=== PATIENT | female | born 1965 | race Hispanic/Latino ===

== ENCOUNTER → 2018-07-18 | Emergency (ER) | payer OTHER ==
[~2018-07-18] VITALS: Ht 157.5 cm; Wt 85.7 kg
[~2018-07-18] MED LIST: HYDROCODONE/APAP 5MG-325MG TAB PO ONE; TYLENOL WITH C1 EACH PO; Z.0.DILANTIN100 MG; Z.0.DIOVAN160 MG
--- NOTE | 2018-07-18 13:31 | Diagnostic Imaging Report ---
EXAMINATION: PA and lateral views of the chest. Rib series COMPARISON: None CLINICAL HISTORY: Pain DISCUSSION: Lines/tubes: None. Lungs: The lungs are well inflated and clear. No pneumonia or pulmonary edema. Pleura: No pleural effusion or pneumothorax. Heart and mediastinum: The cardiomediastinal silhouette is normal. Bones and soft tissues: No acute bony abnormalities. IMPRESSION: No acute cardiopulmonary abnormalities. No displaced rib fracture Signed by: Dr. Jose D Bowens M.D. on 07/18/2018 1:29 PM
--- NOTE | 2018-07-18 13:32 | Diagnostic Imaging Report ---
Exam: Left wrist 3 views an elbow 3 views History: Pain Comparison: None. Findings: No fracture or malalignment. Joint spaces preserved. No abnormal soft tissue calcification or soft tissue defect. Impression: No acute osseous abnormality Signed by: Dr. Jose D Bowens M.D. on 07/18/2018 1:30 PM
== END | disposition home or self-care (01) ==
LOC: ER 12:14
DX: S52.325A Nondisplaced transverse fracture of shaft of left radius, initial encounter for closed fracture (principal); R07.89 Other chest pain; M25.522 Pain in left elbow; W01.0XXA Fall on same level from slipping, tripping and stumbling without subsequent striking against object, initial encounter; Y92.512 Supermarket, store or market as the place of occurrence of the external cause
CPT/HCPCS: 71046; 71101

== ENCOUNTER → 2018-11-12 | Outpatient (CLI) | payer OTHER ==
[~2018-11-12] MED LIST changes: -HYDROCODONE/APAP 5MG-325MG TAB PO ONE
--- NOTE | 2018-11-12 09:40 | Diagnostic Imaging Report ---
ADDENDUM #1 ADDENDUM: Dose modulation, iterative reconstruction, and/or weight based adjustment of the mA/kV was utilized to reduce the radiation dose to as low as reasonably achievable. Signed by: Dr. Brooke Kwong MD on 11/12/2018 12:44 PM ORIGINAL REPORT EXAM: CT Abdomen and Pelvis WITHOUT contrast INDICATION: Diarrhea, left lower quadrant pain, Helicobacter pylori. COMPARISON: None. TECHNIQUE: Abdomen and pelvis were scanned utilizing a multidetector helical scanner from the lung base to the pubic symphysis without administration of IV contrast. Absence of intravenous contrast decreases sensitivity for detection of focal lesions and vascular pathology. Coronal and sagittal reformations were obtained. Routine protocol was performed. IV CONTRAST: None. ORAL CONTRAST: Gastrografin RADIATION DOSE: Total DLP: 621.2 mGy*cm COMPLICATIONS: None FINDINGS: LINES and TUBES: None. LOWER THORAX: Unremarkable HEPATOBILIARY: No focal hepatic lesions. No biliary ductal dilation. GALLBLADDER: No radio-opaque stones or sludge. No wall thickening. SPLEEN: No splenomegaly. PANCREAS: No focal masses or ductal dilatation. ADRENALS: No adrenal nodules KIDNEYS/URETERS: No hydronephrosis. No cystic or solid mass lesions. No stones. GI TRACT: No evidence of bowel obstruction. Appendix is normal. Mild gastric wall thickening. PELVIC ORGANS/BLADDER: Status post hysterectomy. LYMPH NODES: No lymphadenopathy. VESSELS: Unremarkable. PERITONEUM / RETROPERITONEUM: No free air or fluid. BONES: No acute bony abnormality. SOFT TISSUES: Bilateral breast implants. IMPRESSION: No evidence of acute CT abdomen in the abdomen or pelvis. Mild gastric wall thickening, which may reflect underdistention or gastritis in this patient with history of Helicobacter pylori. Correlation with findings from reported EGD performed at outside hospital is suggested. Signed by: Dr. Brooke Kwong MD on 11/12/2018 9:36 AM
== END ==
LOC: CT 08:02
PROVIDERS: ATTEND Internal Medicine Gastroenterology
DX: R19.7 Diarrhea, unspecified (principal); R10.32 Left lower quadrant pain; A04.8 Other specified bacterial intestinal infections; Z71.3 Dietary counseling and surveillance
CPT/HCPCS: 74176

== ENCOUNTER 2019-02-10 21:17 | Emergency (ER) | payer OTHER ==
--- OUTSIDE RECORDS SUMMARY | 2019-02-10 21:20 | XMS REPORT ---
Author [facility] Address Unknown Phone Unavailable Care Team Providers Care Poleyard Supervisor Name Role Phone Jes ALEXIS Unavailable Unavailable Marlee GOODMAN Unavailable Unavailable Payers Payer Name Policy Type Policy Number Effective Date Expiration Date Problems This patient has no known problems. Allergies, Adverse Reactions, Alerts Allergy Name Allergy Type Status Severity Reaction(s) Onset Date Inactive Date Treating Clinician Comments Penicillins DA Active U 2018-09-23 00:00:00 tramadol DA Active SV 2018-09-23 00:00:00 methocarbamol DA Active U 2018-05-08 00:00:00 pineapple DA Active U 2018-05-08 00:00:00 kiwi DA Active U 2018-05-08 00:00:00 carbamazepine DA Active U 2018-03-06 00:00:00 Medications This patient has no known medications. Results Test Description Test Time Test Comments Text Results Atomic Results Result Comments CT ABDOMEN/PELVIS WO 2018-11-12 09:28:[address] [address] Patient Name: TONI NORWOOD MR #: [id number] : 1965 Age/Sex: 53/F Req #: [id number] Adm Physician: Ordered by: ARIANNA ALEXIS MD Report #: [id number] Location: CT Room/Bed: Procedure: [id number] CT/CT ABDOMEN/PELVIS WO Exam Date: 11/12/18 Exam Time: 0900 REPORT STATUS: Signed ADDENDUM #1 ADDENDUM: Dose modulation, iterative reconstruction, and/or weight based adjustment of the mA/kV was utilized to reduce the radiation dose to as low as reasonably achievable. Signed by: Dr. Kaitlin Hamm MD on 11/12/2018 12:44 PM ORIGINAL REPORT EXAM: CT Abdomen and Pelvis WITHOUT contrast INDICATION: Diarrhea, left lower quadrant pain, Helicobacter pylori. COMPARISON: None. TECHNIQUE: Abdomen and pelvis were scanned utilizing a multidetector helical scanner from the lung base to the pubic symphysis without administration of IV contrast. Absence of intravenous contrast decreases sensitivity for detection of focal lesions and vascular pathology. Coronal and sagittal reformations were obtained. Routine protocol was performed. IV CONTRAST: None. ORAL CONTRAST: Gastrografin RADIATION DOSE: Total DLP: 621.2 mGy*cm COMPLICATIONS: None FINDINGS: LINES and TUBES: None. LOWER THORAX: Unremarkable HEPATOBILIARY: No focal hepatic lesions. No biliary ductal dilation. GALLBLADDER: No radio-opaque stones or sludge. No wall thickening. SPLEEN: No splenomegaly. PANCREAS: No focal masses or ductal dilatation. ADRENALS: No adrenal nodules KIDNEYS/URETERS: No hydronephrosis. No cystic or solid mass lesions. No stones. GI TRACT: No evidence of bowel obstruction. Appendix is normal. Mild gastric wall thickening. PELVIC ORGANS/BLADDER: Status post hysterectomy. LYMPH NODES: No lymphadenopathy. VESSELS: Unremarkable. PERITONEUM / RETROPERITONEUM: No free air or fluid. BONES: No acute bony abnormality. SOFT TISSUES: Bilateral breast implants. IMPRESSION: No evidence of acute CT abdomen in the abdomen or pelvis. Mild gastric wall thickening, which may reflect underdistention or gastritis in this patient with history of Helicobacter pylori. Correlation with findings from reported EGD performed at outside hospital is suggested. Signed by: Dr. Kaitlin Hamm MD on 11/12/2018 9:36 AM Dictated By: KAITLIN HAMM MD [id number] Transcribed By: BURT MICHAUD on 11/12/18 0936 COPY TO: ARIANNA ALEXIS MD WRIST COMPLETE LEFT 2018-07-18 13:29:00 [place] [address] Patient Name: TONI NORWOOD MR #: [id number] : 1965 Age/Sex: 52/F Req #: [id number] Adm Physician: Ordered by: SAMRA REYES NP Report #: [id number] Location: ER Room/Bed: Procedure: [id number] DX/WRIST COMPLETE LEFT Exam Date: Exam Time: REPORT STATUS: Signed Exam: Left wrist 3 views an elbow 3 views History: Pain Comparison: None. Findings: No fracture or malalignment. Joint spaces preserved. No abnormal soft tissue calcification or soft tissue defect. Impression: No acute osseous abnormality Signed by: Dr. Saba Medina M.D. on 07/18/2018 1:30 PM Dictated By: SABA MEDINA MD [id number] Transcribed By: RILEY on 07/18/18 1330 COPY TO: SAMRA REYES NP ELBOW LEFT COMPLETE 2018-07-18 13:29:[address], [place], [place] [address] Patient Name: TONI NORWOOD MR #: [id number] : 1965 Age/Sex: 52/F Req #: [id number] Adm Physician: Ordered by: SAMRA REYES [employer]CRA[employer] MAINTENAN[employer] INSTRUCTOR Report #: [id number] Location: ER Room/Bed: Procedure: [id number] DX/ELBOW LEFT COMPLETE Exam Date: Exam Time: REPORT STATUS: Signed Exam: Left wrist 3 views an elbow 3 views History: Pain Comparison: None. Findings: No fracture or malalignment. Joint spaces preserved. No abnormal soft tissue calcification or soft tissue defect. Impression: No acute osseous abnormality Signed by: Dr. Saba Medina M.D. on 07/18/2018 1:30 PM Dictated By: SABA MEDINA MD 29 Transcribed By: RILEY on 07/18/18 1330 COPY TO: SAMRA REYES NP/CXDarian 2018-07-18 13:26:00 [place] [address] Patient Name: TONI NORWOOD MR #: [id number] : 1965 Age/Sex: 52/F Req #: [id number] Adm Physician: Ordered by: SAMRA REYES [employer]CRA[employer] MAINTENANCE INSTRUCTOR Report #: [id number] Location: ER Room/Bed: Procedure: DX/RIBS UNILAT W/CXR Exam Date: Exam Time: REPORT STATUS: Signed EXAMINATION: PA and lateral views of the chest. Rib series COMPARISON: None CLINICAL HISTORY: Pain DISCUSSION: Lines/tubes: None. Lungs: The lungs are well inflated and clear. No pneumonia or pulmonary edema. Pleura: No pleural effusion or pneumothorax. Heart and mediastinum: The cardiomediastinal silhouette is normal. Bones and soft tissues: No acute bony abnormalities. IMPRESSION: No acute cardiopulmonary abnormalities. No displaced rib fracture Signed by: Dr. Saba Medina M.D. on 07/18/2018 1:29 PM Dictated By: SABA MEDINA MD 28 Transcribed By: RILEY on 07/18/181328 COPY TO: SAMRA REYES [employer] MAINTENANCE INSTRUCTOR CHEST 2 VIEWS 2018-07-18 13:26:00 [place] [address] Patient Name: TONI NORWOOD MR #: [id number] : 1965 Age/Sex: 52/F Req #: [id number] Adm Physician: Ordered by: SAMRA REYES [employer] MAINTENAN[employer] INSTRUCTOR Report #: [id number] Location: ER Room/Bed: Procedure: DX/CHEST 2 VIEWS Exam Date: Exam Time: REPORT STATUS: Signed EXAMINATION: PA and lateral views of the chest. Rib series COMPARISON: None CLINICAL HISTORY: Pain DISCUSSION: Lines/tubes: None. Lungs: The lungs are well inflated and clear. No pneumonia or pulmonary edema. Pleura: No pleural effusion or pneumothorax. Heart and mediastinum: The cardiomediastinal silhouette is normal. Bones and soft tissues: No acute bony abnormalities. IMPRESSION: No acute cardiopulmonary abnormalities. No displaced rib fracture Signed by: Dr. aSba Medina M.D. on 07/18/2018 1:29 PM Dictated By: SABA MEDINA MD 1329 Transcribed By: RILEY on 07/18/18 1329 COPY TO: SAMRA REYES NP
== END 2019-02-10 21:20 | disposition short-term general hospital (02) ==
LOC: FSED 21:17
DX: M79.672 Pain in left foot (principal)

== ENCOUNTER → 2019-05-19 | Outpatient (CLI) | payer OTHER ==
--- NOTE | 2019-05-19 15:01 | Diagnostic Imaging Report ---
EXAM: Thyroid Ultrasound INDICATION: ^ABS TSH COMPARISON: None TECHNIQUE: Transverse and sagittal images were obtained of the thyroid gland. FINDINGS: Thyroid gland: Size: Right lobe: 5.4 x 1.5 x 1.6 cm, Normal in size Left lobe: 4.5 x 1.4 x 1.4 cm, Normal in size Isthmus: 0.3 cm, Normal in size Appearance: Homogeneous echotexture without increased vascularity Masses/Nodules: Right lobe: 1.4 x 0.7 x 1.1 cm solid (2 pts) nodule in the interpolar region with smooth margin (0 pts), vrnot-mfve-yglm (0 pts), hypoechoic (2 pts), and no calcifications (0 pts). TR4b (1.0-1.5 cm), Moderately Suspicious: Follow at 1, 2, 3, 5 years. 0.8 x 0.5 x 1.0 cm solid (2 pts) nodule in the inferior pole with smooth margin (0 pts), igoht-blqv-wsik (0 pts), hypoechoic (2 pts), and no calcifications (0 pts). TR4a (<1.0 cm): No follow-up. Isthmus: 0.5 x 0.3 x 0.4 cm solid (2 pts) nodule in the isthmus with smooth margin (0 pts), bgpqp-maln-krxk (0 pts), hypoechoic (2 pts), and no calcifications (0 pts). TR4a (<1.0 cm): No follow-up. Left lobe: 0.7 x 0.4 x 0.5 cm solid (2 pts) nodule in the superior pole with smooth margin (0 pts), fxoea-wohr-nswy (0 pts), hypoechoic (2 pts), and macrocalcifications (1 pt). TR4a (<1.0 cm): No follow-up. 0.6 x 0.3 x 0.4 cm solid (2 pts) nodule in the inferior pole with smooth margin (0 pts), pmwtr-avvm-mqzy (0 pts), hypoechoic (2 pts), and no calcifications (0 pts). TR4a (<1.0 cm): No follow-up. Parathyroid: No focal parathyroid masses. Lymph nodes: No adenopathy. IMPRESSION: 1. Normal bilateral thyroid lobe size and echogenicity. 2. 1.4 cm solid hypoechoic nodule in the right interpolar region for which follow-up thyroid ultrasound is recommended in 12 months TR4b (1.0-1.5 cm), Moderately Suspicious: Follow at 1, 2, 3, 5 years. 3. Other bilateral nodules require no further follow-up per TIRADS.. TI-RADS Lexicon: TR1, Benign: No FNA TR2, Not Suspicious: No FNA. TR3a (<1.5 cm): No follow-up. TR3b (1.5-2.5 cm), Mildly Suspicious: Follow at 1, 3, 5 years. TR3c (>2.5 cm), Mildly Suspicious: FNA. TR4a (<1.0 cm): No follow-up. TR4b (1.0-1.5 cm), Moderately Suspicious: Follow at 1, 2, 3, 5 years. TR4c (>1.5 cm), Moderately Suspicious: FNA. TR5a (<0.5 cm): No follow-up. TR5b (0.5-1.0 cm), Highly Suspicious: Follow at 1, 2, 3, 4, 5 years. TR5c (>1.0 cm), Highly Suspicious: FNA. *Rebiopsy if new suspicious features *No recommendation at this time for significant interval growth. Nodule Characteristics: * Benign features: cystic, hyperechoic, comet-tail artifact, complete halo * Minor suspicious features: solid, hypoechoic, other calcifications * Major suspicious features: microcalcifications, marked hypoechoic (less than strap muscle), suspicious lymph nodes, taller than wide, lobulated or ill-defined margins. Literature: ACR Thyroid Imaging, Reporting and Data System (TI-RADS): White Paper of the ACR TI-RADS Committee. J Am Sofi Radiol 2017. Signed by: Dr. Maximiliano Hanson M.D. on 05/19/2019 2:58 PM
== END ==
LOC: US 10:48
PROVIDERS: ATTEND Family Medicine
DX: R94.6 Abnormal results of thyroid function studies (principal)
CPT/HCPCS: 76536

== ENCOUNTER → 2019-12-02 | Outpatient (CLI) | payer OTHER ==
[~2019-12-02] MED LIST changes: +ALBUTEROL SULF 0.083% NEB SOLN 3 ML NEB ONE
--- NOTE | 2019-12-02 17:12 | Diagnostic Imaging Report ---
EXAM: CT Chest WITHOUT intravenous contrast 12/02/2019 1:56 PM INDICATION: Cough, asthma COMPARISON: Chest radiograph 07/18/2018, CT abdomen and pelvis 11/12/2018 TECHNIQUE: Chest was scanned utilizing a multidetector helical scanner from the lung apex through the level of the adrenal glands without administration of IV contrast. Coronal and sagittal reformations were obtained. Routine protocol was performed. IV CONTRAST: None RADIATION DOSE: Total DLP: 534.9 mGy*cm. Dose modulation, iterative reconstruction, and/or weight based adjustment of the mA/kV was utilized to reduce the radiation dose to as low as reasonably achievable. COMPLICATIONS: None FINDINGS: LINES/ TUBES: None. LUNGS AND AIRWAYS: The central airways are patent. No focal consolidation or pulmonary edema. No suspicious pulmonary nodules. PLEURA: The pleural spaces are clear. HEART AND MEDIASTINUM: 9 mm left thyroid and 7 mm right thyroid hypodense nodules are likely clinically insignificant and do not require further imaging follow-up. No supraclavicular, mediastinal, or hilar lymphadenopathy. No axillary lymphadenopathy. The heart is not enlarged. No pericardial effusion. UPPER ABDOMEN: No acute findings. BONES: No acute osseous injury. No suspicious lytic blastic lesions. SOFT TISSUES: Bilateral saline breast implants. IMPRESSION: No acute cardiopulmonary process. Signed by: Alberta Mccormick MD on 12/02/2019 5:09 PM
== END ==
LOC: RESP 13:44
PROVIDERS: ATTEND Internal Medicine
DX: J45.40 Moderate persistent asthma, uncomplicated (principal)
CPT/HCPCS: 71250; 94060; 94640; 94727; 94729

== ENCOUNTER → 2020-03-16 | Outpatient (CLI) | payer OTHER ==
[~2020-03-16] MED LIST changes: -ALBUTEROL SULF 0.083% NEB SOLN 3 ML NEB ONE
--- NOTE | 2020-03-16 15:50 | Diagnostic Imaging Report ---
Radiographs of the right and left hands 3 views each hand HISTORY: Pain. Fibromyalgia. COMPARISON: None available. FINDINGS: Bones: No acute displaced fracture. Osseous alignment is within normal limits. Joints: Scattered degenerative change. No osseous erosion. Soft tissues: The soft tissues appear unremarkable. IMPRESSION: Scattered degenerative change. No osseous erosion. Signed by: Dr. Ever Morel M.D. on 03/16/2020 3:47 PM
--- NOTE | 2020-03-16 15:52 | Diagnostic Imaging Report ---
Radiographs of the lumbar spine 5 views with bilateral obliques. HISTORY: Pain. Fibromyalgia. COMPARISON: None available. FINDINGS: Bones: No acute displaced fracture. Hypoplastic ribs at L1. Osseous alignment is within normal limits. Joints: Scattered degenerative change. No osseous erosion. No pars interarticularis defects. Soft tissues: The soft tissues appear unremarkable. IMPRESSION: Scattered degenerative change. No osseous erosion. No pars interarticularis defects. Signed by: Dr. Ever Morel M.D. on 03/16/2020 3:48 PM
--- NOTE | 2020-03-16 15:55 | Diagnostic Imaging Report ---
Frontal radiograph of the pelvis. Densities over the right hip joint could be overlying the patient or artifactual. HISTORY: Pain. Fibromyalgia. COMPARISON: None available. FINDINGS: Bones: No acute displaced fracture. Osseous alignment is within normal limits. Joints: Scattered degenerative change. No osseous erosion. Soft tissues: The soft tissues appear unremarkable. 2 Scott-shaped densities over the right hip joint could be overlying the patient or artifactual. Small metallic densities over the lower sacrum. IMPRESSION: Scattered degenerative change. No osseous erosion. Signed by: Dr. Ever Morel M.D. on 03/16/2020 3:52 PM
== END ==
LOC: RAD 14:47
DX: M79.7 Fibromyalgia (principal); M54.5 Low back pain; M70.62 Trochanteric bursitis, left hip; M79.642 Pain in left hand; M79.641 Pain in right hand
CPT/HCPCS: 72110; 72170

== ENCOUNTER → 2020-08-30 | Outpatient (CLI) | payer OTHER ==
--- NOTE | 2020-08-30 12:35 | Diagnostic Imaging Report ---
EXAMINATION: HIPS BILAT TWO VWS(+/- PELVIS) INDICATION: Hip pain COMPARISON: None FINDINGS: AP and frog-leg views of both hips were obtained. No acute fracture or dislocation. Alignment is anatomic. No substantial degenerative change. Soft tissues appear unremarkable. IMPRESSION: No acute osseous injury of either hip. Signed by: Alberta Mccormick MD on 08/30/2020 12:32 PM
--- NOTE | 2020-08-30 12:44 | Diagnostic Imaging Report ---
EXAMINATION: HAND TWO VIEWS BILATERAL INDICATION: Hand pain COMPARISON: None FINDINGS: 2 views of both hands demonstrate no acute fracture or dislocation. Alignment is anatomic. No substantial degenerative change or evidence of erosive arthropathy. The soft tissues appear unremarkable. IMPRESSION: No acute osseous injury of either hand. Signed by: Alberta Mccormick MD on 08/30/2020 12:40 PM
--- NOTE | 2020-08-30 12:46 | Diagnostic Imaging Report ---
EXAMINATION: KNEE 4 + VIEWS RT, KNEE 4 + VIEWS LT INDICATION: Knee pain COMPARISON: None FINDINGS: AP, lateral, oblique, and sunrise views of both knees demonstrate no acute fracture or dislocation. Alignment is anatomic. No substantial degenerative change. No joint effusion. The soft tissues appear unremarkable. IMPRESSION: No acute osseous injury of either knee. Signed by: Alberta Mccormick MD on 08/30/2020 12:42 PM
--- NOTE | 2020-08-30 13:06 | Diagnostic Imaging Report ---
EXAMINATION: FOOT COMPLETE BILATERAL INDICATION: Foot pain COMPARISON: None FINDINGS: AP, lateral and oblique images of both feet demonstrate no acute fracture or dislocation. Alignment is anatomic. No substantial degenerative change. The soft tissues appear unremarkable. Right greater than left plantar calcaneal spurs. IMPRESSION: No acute osseous injury of either foot. Right greater than left small plantar calcaneal spurs. Signed by: Alberta Mccormick MD on 08/30/2020 1:03 PM
== END ==
LOC: RAD 10:58
PROVIDERS: ATTEND Student in an Organized Health Care Education/Training Program
DX: M13.0 Polyarthritis, unspecified (principal); M25.552 Pain in left hip; M25.551 Pain in right hip; M25.562 Pain in left knee; M25.561 Pain in right knee; M79.662 Pain in left lower leg; M79.661 Pain in right lower leg; M79.672 Pain in left foot; M79.671 Pain in right foot; M79.642 Pain in left hand; M79.641 Pain in right hand
CPT/HCPCS: 73521

== ENCOUNTER 2020-09-13 10:06 | Emergency (ER) | payer OTHER ==
[~2020-09-13] VITALS: Ht 157.5 cm; Wt 85.7 kg
[~2020-09-13 10:06] MED LIST changes: +LOSARTAN POTAS100 MG PO; +TURMERIC1 GM PO; +VITAMIN C1000 MG PO; +VITAMIN D3250 MCG PO; +VITAMIN E400 UNI1 PO
[2020-09-13] MEDS ORDERED: IBUPROFEN 600 MG TAB PO STA (10:17)
--- NOTE | 2020-09-13 10:39 | Emergency Department Note ---
History of Present Illnes History of Present Illness Chief Complaint: Extremity Trauma/Pain History of Present Illness This is a 55 year old female Chief Complaint Comment RT HAND PAIN AFTER FALL, +RADIAL PULSE, STATES CAN'T MOVE FINGERS. CAP REFILL < 2 SECONDS. PT AAOX4. AMBULATORY. PT STATES DX RECENT FIBROMYALGIA... . Historian: Patient, Family Member Arrival Mode: Car Onset (how long ago): hour(s) (2) Location: right hand Quality: dull Radiation: Denies non-radiation, Denies back, Denies neck, Denies extremity, Denies abdomen, Denies periumbilical, Denies flank, Denies proximal, Denies distal, Denies other Severity: mild Onset quality: sudden Duration (how long): hour(s) (2) Timing of current episode: constant Progression: unchanged Chronicity: new Context: Denies recent illness, Denies recent surgery, Denies recent immobilization, Denies recent travel, Denies trauma/injury, Denies new medications, Denies hx of DVT/PE, Denies non-compliance w/ medications, Denies other Relieving factors: none Exacerbating factors: none Associated symptoms: Denies denies other symptoms, Denies confusion, Denies chest pain, Denies cough, Denies diaphoresis, Denies fever/chills, Denies headaches, Denies loss of appetite, Denies malaise, Denies nausea/vomiting, Denies rash, Denies seizure, Denies shortness of breath, Denies syncope, Denies weakness, Denies other Treatments prior to arrival: none Past Medical/Family History Physician Review I have reviewed the patient's past medical and family history. Any updates have been documented here. Past Medical History Recent Fever: No Clinical Suspicion of Infectio: No New/Unexplained Change in Ment: No Past Medical History: Hypertension, Asthma, Seizure Disorder, Anemia Other Medical History: FIBROMYALGIA Past Surgical History: Hysterectomy Social History Smoking Cessation: Unknown if ever smoked Counseling Performed: No Alcohol Use: None Any Illegal Drug Use: No Other Last Tetanus: UTD Any Pre-Existing Lines (PICC,: No Review of Systems Review of Systems Constitutional: Reports no symptoms EENTM: Reports no symptoms Cardiovascular: Reports no symptoms; Denies as per HPI, Denies chest pain, Denies edema, Denies palpitations, Denies syncope, Denies other Respiratory: Reports no symptoms; Denies as per HPI, Denies change in phlegm color, Denies chest congestion, Denies cough, Denies hemoptysis, Denies excessive phlegm production, Denies pain on inspiration, Denies pain with cough, Denies dyspnea, Denies dyspnea on exertion, Denies snoring, Denies stridor, Denies wheezing, Denies other Gastrointestinal: Reports no symptoms; Denies as per HPI, Denies abdominal pain, Denies constipation, Denies diarrhea, Denies nausea, Denies vomiting, Denies other Genitourinary: Reports no symptoms Musculoskeletal: Reports no symptoms, Reports as per HPI Integumentary: Reports no symptoms; Denies as per HPI, Denies change in color, Denies change in hair/nails, Denies dryness, Denies lesions, Denies lumps, Denies rash, Denies poor turgor, Denies ecchymosis, Denies other Neurological: Reports no symptoms; Denies as per HPI, Denies headache, Denies numbness, Denies paresthesia, Denies pre-existing deficit, Denies seizure, Denies tingling, Denies tremors, Denies weakness, Denies other Psychological: Reports no symptoms Endocrine: Reports no symptoms; Denies as per HPI, Denies excessive sweating, Denies flushing, Denies intolerance to cold, Denies intolerance to heat, Denies increased hunger, Denies increased thirst, Denies increased urination, Denies unexplained weight gain, Denies unexplained weight loss, Denies other Hematological/Lymphatic: Reports no symptoms Physical Exam Related Data Allergies: Coded Allergies: carbamazepine (Verified Allergy, Unknown, 09/13/20) iodine (Verified Allergy, Unknown, 09/13/20) Triage Vital Signs Vital Signs Date Time Temp Pulse Resp B/P (MAP) Pulse Ox O2 Delivery O2 Flow Rate FiO2 09/13/20 10:12 98.1 81 18 151/77 99 Room Air Vital signs reviewed: Yes Physical Exam CONSTITUTIONAL Constitutional: Present well-developed, Present well-nourished HENT HENT: Present normocephalic, Present atraumatic, Present oropharynx clear/moist, Present nose normal HENT L/R: Present left ext ear normal, Present right ext ear normal EYES Eyes: Reports PERRL, Reports conjunctivae normal NECK Neck: Present ROM normal PULMONARY Pulmonary: Present effort normal, Present breath sounds normal CARDIOVASCULAR Cardiovascular: Present regular rhythm, Present heart sounds normal, Present capillary refill normal, Present normal rate GASTROINTESTINAL Abdominal: Present soft, Present nontender, Present bowel sounds normal GENITOURINARY Genitourinary: Present exam deferred SKIN Skin: Present warm, Present dry MUSCULOSKELETAL Musculoskeletal: Present ROM normal, Present tenderness (right hand) NEUROLOGICAL Neurological: Present alert, Present oriented x 3, Present no gross motor or sensory deficits PSYCHOLOGICAL Psychological: Present mood/affect normal, Present judgement normal Results Imaging Imaging results reviewed: Yes Assessment & Plan Medical Decision Making MDM fracture contusion Reassessment Reassessment time: 10:38 Reassessment better Assessment & Plan Final Impression: (1) Acute pain due to trauma (2) Contusion of hand, right Depart Disposition: HOME, SELF-CARE Last Vital Signs Date Time Temp Pulse Resp B/P (MAP) Pulse Ox O2 Delivery O2 Flow Rate FiO2 09/13/20 10:12 98.1 81 18 151/77 99 Room Air Home Meds Reported Medications Turmeric (TURMERIC) 1 Gm Powder, 500 MG PO DAILY 09/08/20 Vitamin E Mixed (VITAMIN E) 400 Unit Capsule, 100 MG PO DAILY 09/08/20 Ascorbic Acid (VITAMIN C) 1,000 Mg Tablet, 1000 MG PO DAILY 09/08/20 Cholecalciferol (Vitamin D3) (Vitamin D3) 250 Mcg Tablet, 25 MCG PO DAILY 09/08/20 Losartan Potassium (LOSARTAN POTASSIUM) 100 Mg Tablet, 100 MG PO DAILY, TAB 09/08/20 Phenytoin Sodium Extended (Dilantin) 100 Mg Capsule, 300 MG DAILY 09/07/11 Discontinued Reported Medications Valsartan (Diovan) 160 Mg Tablet, BID 09/07/11 Discontinued Scripts Acetaminophen With Codeine (TYLENOL WITH CODEINE #3 TABLET) 1 Each Tablet, 300 MG PO Q4H PRN for PAIN, #15 TAB Prov:SAMRA REYES NP 07/18/18 Medications in the ED Ibuprofen 600 mg ONCE STAT PO Last administered on 09/13/20at 10:26; Admin Dose 600 MG; Start 09/13/20 at 10:17; Stop 09/13/20 at 10:28; Status DC IGNACIO MEJIA MD Sep 13, 2020 10:39
--- OUTSIDE RECORDS SUMMARY | 2020-09-13 10:42 | XMS REPORT | Clinical Summary ---
Author Author [facility] Organization [facility] Address Unknown Phone Unavailable Care Team Providers Care Accountant Clerk Name Role Phone Ezequiel Kauffman MD PCP Allergies Comments Active Allergy Reactions Severity Noted Date Sleep walking Zolpidem Other 01/21/2017 Carbamazepine Hallucination 03/01/2016 s Kiwi Swelling 03/01/2016 Methocarbamol 03/01/2016 Pineapple Breathing 03/01/2016 problems Does not recall what reaction she has Tramadol 02/12/2018 Medications End Date Status Medication Sig Dispensed Refills Start Date Active Ferrous Gluconate 324 mg Take 1 tablet 90 tablet 3 (38 mg iron) by mouth 3 8 tabletIndications: Iron times daily deficiency anemia, with meals. unspecified iron deficiency anemia type, Abnormal uterine bleeding Active montelukast (SINGULAIR) Take 1 tablet 30 tablet 2 10 mg tabletIndications: by mouth at 8 Mild intermittent asthma bedtime without complication nightly. Active metoprolol succinate Take 1 tablet 90 tablet 1 (TOPROL XL) 50 mg by mouth 9 extended release daily. tabletIndications: Essential hypertension Active phenytoin sodium Take 3 270 capsule 3 (DILANTIN) 100 mg capsules by 9 extended release mouth at capsuleIndications: bedtime Seizure disorder nightly. Active budesonide-formoterol Inhale 2 10.2 g 2 / (SYMBICORT) 80-4.5 Puffs by 9 mcg/actuation mouth 2 times inhalerIndications: Mild daily. persistent asthma without complication Active Nebulizers by 1 Each 0 MiscIndications: Mild Misc.(Non-Reji 9 persistent asthma without g; Combo complication Route) route. Active albuterol (PROVENTIL) 2.5 Inhale 3 mL 75 mL 3 mg /3 mL (0.083 %) by mouth 9 nebulizer every 6 hours solutionIndications: as needed for Allergic rhinitis, Wheezing. unspecified seasonality, unspecified trigger Active fluticasone propionate Use 2 Sprays 16 g 2 (FLONASE) 50 in each 9 mcg/actuation nasal nostril sprayIndications: Upper daily. respiratory infection with cough and congestion Active cetirizine (ZYRTEC) 10 mg Take 1 tablet 30 tablet 1 tabletIndications: by mouth 9 Allergic rhinitis, daily. unspecified seasonality, unspecified trigger Active amoxicillin (AMOXIL) 500 Take 1 30 capsule 0 0 mg capsuleIndications: capsule by 9 Pharyngitis, unspecified mouth 3 times etiology daily. Active losartan (COZAAR) 100 mg TAKE 1 TABLET 90 tablet 0 tabletIndications: BY MOUTH ONCE 0 Essential hypertension DAILY 11/05/2019 Discontinued losartan (COZAAR) 100 mg Take 1 tablet 90 tablet 1 tabletIndications: by mouth 9 Essential hypertension daily. 11/05/2019 Discontinued (Reorder) losartan (COZAAR) 100 mg TAKE 1 TABLET 30 tablet 0 tabletIndications: BY MOUTH ONCE 0 Essential hypertension DAILY 11/11/2019 Discontinued losartan (COZAAR) 100 mg Take 1 tablet 90 tablet 0 tabletIndications: by mouth 0 Essential hypertension daily. 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 08/15/2017 Essential hypertension 07/07/2017 Seizure disorder 07/07/2017 Hx of migraine headaches 07/07/2017 Mild intermittent asthma without complication 2016 Family history of breast cancer in mother 02/14/2016 Encounters Care Team Description Date Type Specialty Ezequiel Kauffman MD Medications 11/10/2019 Refill Family Practice Ezequiel Kauffman MD Medications 11/05/2019 Orders Only Family Practice Teja Tsang III, MD Medications 11/03/2019 Refill Family Practice after 09/13/2019 Immunizations Name Administration Dates Next Due Influenza Vaccine 12/06/2016 (Deferred: Patie nt Refused) Influenza Vaccine, 09/17/2017, 08/08/2017 (Def erred: Other) Seasonal, Injectable Influenza, 09/15/2018 Vaccine<FLUCELVAX>(Multi- Dose) Tdap (Tetanus Toxoid, 07/24/2017 Reduced Diphtheria Toxoid And Acellular Pertussis, Absorbed) Family History Medical History Relation Name Comments Hypothyroid Brother thyroid cancer Hypertension Father Arthritis Maternal Grandmother Cancer Maternal breast cancer Grandmother Arthritis Mother Cancer Mother breast Pulmonary Mother lung cancer Hypertension Paternal Grandfather Relation Name Status Comments Brother Alive Brother Father htn complications (Age 55) Maternal Grandfather Maternal Grandmother Mother Alive Paternal Grandfather Paternal Grandmother Social History Date Tobacco Use Types Packs/Day Years Used Never Smoker Smokeless Tobacco: Never Used Tobacco Cessation: Counseling Given: No Drinks/Week oz/Week Comments Alcohol Use 0 Standard drinks or equivalent 0.0 No Food Insecurity Answer Date Recorded Within the past 12 months, you worried that your Never alessandro e 08/07/2018 food would run out before you got money to buy more. Within the past 12 months, the food you bought Never true 08/07/2018 just didn't last and you didn't have mo sada to get more. Sex Assigned at Date Recorded Not on file Industry Job Start Date Occupation Not on file Not on file Not on file Travel End Travel History Travel Start No recent travel history available. Last Filed Vital Signs Not on file Plan of Treatment Health Maintenance Due Date Last Done Comments HPV Cervical Cancer Scrn 1995 Breast Cancer Scrn 09/22/2019 09/22/2018 (Yearly) (Previously completed - External), 10/17/2017 (Previously completed - External), 11/05/2016 IMM Influenza Seasonal 07/27/2020 09/15/2018, Oct to December (>/= 19 yrs) 09/17/2017 Pap Cervical Cancer Scrn 08/01/2020 08/01/2015 (Previously completed - External) Colonoscopy 10yr 09/25/2028 09/25/2018 (Previously completed - External) Goals Goal Patient Associated Recent Progress Patient-Stat Aut hor Goal Type Problems ed? Use plate model Diet No Nancy Martinez Have 3 meals a day Diet No Nancy Martinez Feel more energetic Lifestyle No Nancy Soler NP Weight (lb) < 200 lb (90.7 kg) Weight 82.1 kg (181 lb) No Ryder, (06/25/2019 9:45 AM Nancy Ross NP CDT) Results Not on fileafter 09/13/2019
--- OUTSIDE RECORDS SUMMARY | 2020-09-13 10:42 | XMS REPORT | Continuity of Care Document ---
Author Author [facility] t Organization [facility] Address [address] [place] [address] Phone Unavailable Care Team Providers Care Emergency Vehicle Operator Name Role Phone NONSTAFF PCP Unavailable Anna ESCALERA Attphys Unavailable KIMBERLY ERICKSON Attphys Unavailable Valente GRIJALVA Attphys Unavailable GEORGETTE RIVERS Attphys Unavailable FRANCISCO HAQUE Attphys Unavailable Jamari KIMBALL, P Ezequiel Attphys Sharan KIMBALL, Nancy Lezama Attphys BRAYAN CALIX Attphys Unavailable Jes ALEXIS Attphys Unavailable Marlee GOODMAN Attphys Unavailable Payers Payer Name Policy Type Policy Number Effective Date Expiration Date Jes fields [facility] [id number] 2018 00:00:[address] [facility] [id number] 2017 00:00:00 2017-07 00:00:00 [facility] Problems Condition Name Condition Details Condition Category Status Onset Date Resolution Date Last Treatment Date Treating Clinician Comments Source Food insecurity Food insecurity Disease Active 2019-03-12 00:00:00 [facility] Iron deficiency anemia Iron deficiency anemia Disease Active 2018-02-16 00:00:00 [facility] Primary osteoarthritis of both hips Primary osteoarthritis of edis th hips Disease Active 2018-02-12 00:00:00 [facility] Adenomyosis Adenomyosis Disease Active 2018-02-12 00:00:00 [facility] Uterine leiomyoma Uterine leiomyoma Disease Active 2018-02-12 00:00:00 [facility] Abnormal uterine bleeding Abnormal uterine bleeding Disease Ac tive 2018-02-12 00:00:00 [facility] Cervical spondylosis with radiculopathy Cervical spondylosis with radiculopathy Disease Active 2017-08-15 00:00:00 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 Essential hypertension Essential hypertension Disease Active 2017-07-07 00:00:00 [facility] Seizure disorder Seizure disorder Disease Active 2017-07-07 00:00:00 [facility] Hx of migraine headaches Hx of migraine headaches Disease Acti ve 2017-07-07 00:00:00 [facility] Mild intermittent asthma without complication Mild int ermittent asthma without complication Disease Active 2017-07-07 00:00:00 [facility] Family history of breast cancer in mother Family histo ry of breast cancer in mother Disease Active 2016-02-14 00:00:00 [facility] 379.91 - PAIN IN OR AROU 379. 91 - PAIN IN OR AROU Active 11/30/2013 [facility] Diagnosis Active 2013-11-30 00:01:00 2014-04-25 10:28:00 [facility] [place] F[facility] Active 04/20/2012 [facility] Active 2012-04-20 14:00:00 2012-04-20 18:24:00 [facility] Insomnia due to other mental disorder Insomnia due to other mental disorder Active Problem 04/07/2020 [facility] Problem Active 2020-04-07 02:45:08 Omari [facility] Major depressive disorder, Recurrent episode, Moderate Major depressive disorder, Recurrent episode, Moderate Active Problem 04/07/2020 [facility] Problem Active 2020-04-07 02:45:08 [facility] Unspecified anxiety disorder U nspecified anxiety disorder Active Problem 04/07/2020 [facility] Problem Active 2020-04-07 02:45:08 [facility] Allergies, Adverse Reactions, Alerts Allergy Name Allergy Type Status Severity Reaction(s) Onset Date Inacti ve Date Treating Clinician Comments Source Penicillins DA Active U 2020-08-14 00:00:00 [facility] iodine DA Active U 2020-08-14 00:00:00 [facility] carbamazepine DA Active U 2020-08-14 00:00:00 [facility] methocarbamol DA Active U 2020-08-14 00:00:00 [facility] tramadol DA Active SV 2020-08-14 00:00:00 [facility] pineapple FA Active U 2020-08-14 00:00:00 [facility] kiwi FA Active U 2020-08-14 00:00:00 [facility] Penicillins DA Active U 2019-09-27 00:00:00 [facility] iodine DA Active U 2019-09-27 00:00:00 [facility] carbamazepine DA Active U 2019-09-27 00:00:00 [facility] methocarbamol DA Active U 2019-09-27 00:00:00 [facility] tramadol DA Active SV 2019-09-27 00:00:00 [facility] pineapple FA Active U 2019-09-27 00:00:00 [facility] kiwi FA Active U 2019-09-27 00:00:00 [facility] iodine DA Active U 2019-07-22 00:00:00 [facility] carbamazepine DA Active MO 2019-02-10 00:00:00 [facility] Penicillins DA Active U 2018-09-23 00:00:00 [facility] tramadol DA Active SV 2018-09-23 00:00:00 [facility] Pineapple Allergy to Substance Active 2018-07-18 00:00:00 [facility] Kiwi Allergy to Substance Active 2018-07-18 00:00:00 [facility] methocarbamol DA Active U 2018-05-08 00:00:00 [facility] pineapple DA Active U 2018-05-08 00:00:00 [facility] kiwi DA Active U 2018-05-08 00:00:00 [facility] pineapple FA Active U 2018-05-08 00:00:00 [facility] kiwi FA Active U 2018-05-08 00:00:00 [facility] carbamazepine DA Active U 2018-03-06 00:00:00 [facility] Tramadol Propensity to adverse reactions to drug Active 2018-02-12 00:00:00 Does not recall what reaction she has [facility] Zolpidem Propensity to adverse reactions to drug Active Other 2017-01-21 00:00:[address] [facility] Carbamazepine Propensity to adverse reactions to drug Active Hallucinations 2016-03-01 00:00:00 Derek smith Kiwi Propensity to adverse reactions to drug Active Swelling 2016-03-01 00:00:00 [facility] Methocarbamol Propensity to adverse reactions to drug Active 2016-03-01 00:00:00 [facility] Pineapple Propensity to adverse reactions to drug Active Breathing problems 2016-03-01 00:00:00 Derek smith No Known Allergies DA Active U 2014-06-23 00:00:00 [facility] Family History Family Member Diagnosis Comments Start Date Stop Date Source Natural brother Hypothyroid Derek wing Natural father Hypertension Derek wing Maternal grandmother Arthritis [facility] Maternal grandmother Cancer [facility] Natural mother Arthritis Derek Miller [facility] Natural mother Cancer [facility] Natural mother Pulmonary [facility] Paternal grandfather Hypertension [facility] Social History Social Habit Start Date Stop Date Quantity Comments Source Sex Assigned [facility] Alcohol intake 2019-06-25 00:00:00 2019-06-25 00:00:00 Current non-drinker of alcohol (finding) [facility] History SDOH Food Worry 2018-08-07 00:00:00 2018-08-07 00:00:[address] [facility] History SDOH Food Scarcity 2018-08-07 00:00:00 2018-08-07 00:00:[address] [facility] Smoking Status Start Date Stop Date Source Never smoker [facility] Medications Ordered Medication Name Filled Medication Name Start Date Stop Da te Current Medication? Ordering Clinician Indication Dosage Frequency Signature (SIG) Comments Components Source losartan (COZAAR) 100 mg tablet 2019-11-11 00:00:00 Yes Essential hypertension TAKE 1 TABLET BY MOUTH ONCE DAILY [facility] losartan (COZAAR) 100 mg tablet 2019-11-05 00:00:00 00:00:00 No Essential hypertension 100mg QD Take 1 tablet by mouth daily. [facility] losartan (COZAAR) 100 mg tablet 2019-11-05 00:00:00 00:00:00 No Essential hypertension TAKE 1 TABLET BY MOUTH ONCE DAILY [facility] amoxicillin (AMOXIL) 500 mg capsule 2019-05-18 00:00:00 Yes Pharyngitis, unspecified etiology 500mg Take 1 capsule by mouth [address] [facility] albuterol (PROVENTIL) 2.5 mg /3 mL (0.083 %) nebulizer solut ion 2019-03-12 00:00:00 Yes Allergic rhiniti s, unspecified seasonality, unspecified trigger 2.5mg Inhale 3 mL by mouth every 6 hours as needed fo r Wheezing. [facility] fluticasone propionate (FLONASE) 50 mcg/actuation nasal spra y 2019-03-12 00:00:00 Yes Upper respiratory infection with cou gh and congestion 2{spray} QD Use 2 Sprays in each nostril daily. [facility] cetirizine (ZYRTEC) 10 mg tablet 2019-03-12 00:00:00 Yes Allergic rhinitis, unspecified seasonality, unspecified trigger 10mg QD Take 1 tablet by mouth daily. [facility] budesonide-formoterol (SYMBICORT) 80-4.5 mcg/actuation inhal er 2019-01-27 00:00:00 Yes Mild persistent asthma without complicat ion 2{puff} Q.5D Inhale 2 Puffs by mouth 2 times daily. Reed Jeffry [facility]cca Nebulizers Misc 2019-01-27 00:00:00 Yes Mild persistent asthma without complication by [facility]Non-Drug; Combo Route) route. [facility] metoprolol succinate (TOPROL XL) 50 mg extended release tabl et 2019-01-06 00:00:00 Yes Essential hypertension 50mg QD Take 1 t ablet by mouth daily. [facility] phenytoin sodium (DILANTIN) 100 mg extended release capsule 2019-01-06 00:00:00 Yes Seizure disorder 300mg Paulo e 3 capsules by mouth at bedtime nightly. [facility] losartan (COZAAR) 100 mg tablet 2019-01-06 00:00:00 00:00:00 No Essential hypertension 100mg QD Take 1 tablet by mouth daily. [facility] Acetaminophen With Codeine (Tylenol With Codeine #3 Ta blet) 1 Each Tablet Acetaminophen With Codeine (Tylenol With Codeine #3 Tablet) 1 Each Tablet 2018-07-18 00:00:00 Yes Aubrey Reyes Book Jogger 300 Every 4 Hours as needed for Pain [facility] Ferrous Gluconate 324 mg (38 mg iron) tablet 2018-07-16 00:0 0:00 Yes Abnormal uterine bleeding 324mg [id number] Take 1 tabl et by mouth 3 times daily with meals. [facility] montelukast (SINGULAIR) 10 mg tablet 2018-07-16 00:00:00 Yes Mild intermittent asthma without complication 10mg Take 1 tablet by mouth at bedtime nightly. [facility] Epinephrine 0.3 Mg/0.3 Ml Pen.injctr Epinephrine 0.3 Mg/0.3 Ml Pen.injctr 2017-11-30 00:00:00 Yes Leticia Ye Md 1 As Needed as needed for Allergy [facility] ibuprofen 600 mg oral tablet 2012-04-21 01:17:24 Yes Dereje Gongora 600 mg, 1 tab, PO, Q6H, PRN, 30 tab, Chasity n, Substitution Allowed, take with foodtake with food [facility] [place] 5/325 oral tablet 2012-04-21 01:17:13 Yes Dereje Gongora 1-2 TAB, PO, Q6H, PRN, 20 tab, as needed for pain, Substitution Allowed, Maintenance [facility] ketorolac 2012-04-20 23:16:00 No Dereje Gongora 60 mg, Route: IM, Drug form: INJ, ONCE, Priority: STAT, Start date: 04/20/12 18:16:00, Stop date: 04/20/12 18:16:00 [facility] Phenytoin Sodium Extended (Dilantin) 100 Mg Capsule Ph enytoin Sodium Extended (Dilantin) 100 Mg Capsule Yes 100 Three Times A Day [facility] Valsartan (Diovan) 160 Mg Tab Valsartan (Diovan) 160 Mg Tab Yes 160 Rt Daily [facility] Phenytoin Sodium Extended (Dilantin) 100 Mg Capsule Ph enytoin Sodium Extended (Dilantin) 100 Mg Capsule Yes Three Times A Day [facility] Valsartan (Diovan) 160 Mg Tablet Valsartan (Diovan) 160 Mg Tablet Yes Twice A Day [facility] Aspirin (Aspir 81) 81 Mg Tablet., 81 Mg Oral Aspirin (Aspir 81) 81 Mg Tablet., 81 Mg Oral 2015-10-26 00:00:00 No 81 Da giovanna [facility] Cephalexin 500 Mg Capsule, 500 Mg Oral Cephalexin 500 Mg Capsule , 500 Mg Oral 2015-10-26 00:00:00 No 500 Three Times A Day [facility] Meclizine Hcl 12.5 Mg Tablet, 25 Mg Oral Meclizine Hcl 12.5 Mg Tablet, 25 Mg Oral 2015-10-26 00:00:00 No 25 Daily [facility] Prednisone 10 Mg Tab, 10 Mg Oral Prednisone 10 Mg Tab, 10 Mg Ora l 2015-10-26 00:00:00 No 10 Daily [facility] Immunizations Ordered Immunization Name Filled Immunization Name Date Status Comments Source Influenza, Vaccine<FLUCELVAX>(Multi-Dose) 2018-09-15 00:00 :[address] [facility] Influenza Vaccine, Seasonal, Injectable 2017-09-17 00:00:[address] [facility] Tdap (Tetanus Toxoid, Reduced Diphtheria Toxoid And Acellular Pertussis, Absorbed) 2017-07-24 00:00:00 Completed [facility] ealt Vital Signs Vital Name Observation Time Observation Value Comments Source Weight 2012-04-20 20:20:00 [facility] Height 2012-04-20 20:20:00 165.10 cm [facility] Procedures Procedure Date / Time Performed Performing Clinician Allan e CT of abdomen and pelvis without contrast 2018-11-12 00:00:00 JOHN PAUL RODRIGUEZ [facility] X-ray of chest, two views 2018-07-18 00:00:00 AUBREY REYES [facility] Plan of Care Planned Activity Planned Date Details Comments Source Scheduled Test 2028-09-25 00:00:00 Screening for gina gnant neoplasm of colon (procedure) [code = 211613921] [facility] Scheduled Test 2020-08-01 00:00:00 Screening for gina gnant neoplasm of cervix (procedure) [code = 245157142] [facility] Scheduled Test 2020-07-27 00:00:00 IMM Influenza Seas onal Jul to December (>/= 19 yrs) [code = IMM Influenza Seasonal Jul to December (>/= 19 yrs)] [facility] Scheduled Test 2019-09-22 00:00:00 Breast Cancer Scrn (Yearly) [code = Breast Cancer Scrn (Yearly)] [facility] Scheduled Test 1995 00:00:00 Screening for gina gnant neoplasm of cervix (procedure) [code = 991455152] [facility] Encounters Start Date/Time End Date/Time Encounter Type Admission Type Attendi [facility] Facility Care Department Encounter ID Source 2020-04-04 17:50:00 2020-04-04 17:50:00 Outpatient [id number] [id number] 2019-07-14 00:00:00 2019-07-14 00:00:00 Outpatient [facility] [id number] [facility] 2019-06-25 09:39:15 2019-06-25 09:39:15 Outpatient [facility] [id number] [facility] 2019-02-15 00:00:00 2019-02-15 00:00:00 Outpatient [facility] [id number] [facility] 2019-02-12 00:00:00 2019-02-12 00:00:00 Outpatient [facility] [id number] [facility] 2019-02-10 21:17:00 2019-02-10 21:20:00 Departed Emergency Room [facility] [id number] [facility]. Lu - Patients [facility] 2019-01-20 15:32:25 2019-01-20 15:32:25 Outpatient [facility] [id number] [facility] 2019-01-20 14:18:34 2019-01-20 14:18:34 Outpatient [facility] [id number] [facility] 2019-01-11 09:05:59 2019-01-11 09:05:59 Outpatient [facility] [id number] [facility] 2019-01-11 08:42:51 2019-01-11 08:42:51 Outpatient [facility] [id number] [facility] 2019-01-07 00:00:00 2019-01-07 00:00:00 Outpatient [facility] [id number] [facility] 2019-01-07 00:00:00 2019-01-07 00:00:00 Outpatient [facility] [id number] [facility] 2019-01-06 10:07:54 2019-01-06 10:07:54 Outpatient [facility] [id number] [facility] 2018-11-12 08:02:00 2018-11-12 08:02:00 Registered Clinic 3 JOHN PAUL RODRIGUEZ [facility] [id number] [facility]. Lu - Patients [facility] 2018-11-11 00:00:00 2018-11-11 00:00:00 Outpatient [facility] [id number] [facility] 2018-11-10 00:00:00 2018-11-10 00:00:00 Outpatient [facility] [id number] [facility] 2018-10-09 09:04:48 2018-10-09 09:04:48 Outpatient [facility] [id number] [facility] 2018-09-25 00:00:00 2018-09-25 00:00:00 Outpatient [facility] [id number] [facility] 2018-09-24 00:00:00 2018-09-24 00:00:00 Outpatient [facility] [id number] [facility] 2018-09-24 00:00:00 2018-09-24 00:00:00 Outpatient [facility] [id number] [facility] 2018-09-23 00:00:00 2018-09-23 00:00:00 Outpatient [facility] [id number] [facility] 2018-09-22 00:00:00 2018-09-22 00:00:00 Outpatient [facility] [id number] [facility] 2018-09-15 15:14:00 2018-09-15 15:14:00 Outpatient [facility] [id number] [facility] 2018-09-11 00:00:00 2018-09-11 00:00:00 Outpatient [facility] [id number] [facility] 2018-09-07 00:00:00 2018-09-07 00:00:00 Outpatient [facility] [id number] [facility] 2018-09-02 08:39:29 2018-09-02 08:39:29 Outpatient [facility] [id number] [facility] 2018-09-01 00:00:00 2018-09-01 00:00:00 Outpatient [facility] [id number] [facility] 2018-09-01 00:00:00 2018-09-01 00:00:00 Outpatient [facility] [id number] [facility] 2018-08-28 00:00:00 2018-08-28 00:00:00 Outpatient [facility] [id number] [facility] 2018-08-19 00:00:00 2018-08-19 00:00:00 Outpatient [facility] [id number] [facility] 2018-08-11 00:00:00 2018-08-11 00:00:00 Outpatient [facility] [id number] [facility] 2018-08-10 00:00:00 2018-08-10 00:00:00 Outpatient [facility] [id number] [facility] 2018-08-10 00:00:00 2018-08-10 00:00:00 Outpatient [facility] [id number] [facility] 2018-08-10 00:00:00 2018-08-10 00:00:00 Outpatient [facility] [id number] [facility] 2018-08-07 08:49:08 2018-08-07 08:49:08 Outpatient [facility] [id number] [facility] 2018-07-21 00:00:00 2018-07-21 00:00:00 Outpatient [facility] [id number] [facility] 2018-07-18 12:14:00 2018-07-18 12:14:00 Registered Emergency Room 1 NILS GOODMAN [facility] [id number] [facility] 2018-07-16 15:32:10 2018-07-16 15:32:10 Outpatient [facility] [id number] [facility] 2018-07-01 00:00:00 2018-07-01 00:00:00 Outpatient [facility] [id number] [facility] 2018-06-25 12:31:10 2018-06-25 12:31:10 Outpatient [facility] [id number] [facility] 2018-06-17 00:00:00 2018-06-17 00:00:00 Outpatient [facility] [id number] [facility] 2018-05-21 14:59:18 2018-05-21 14:59:18 Outpatient [facility] [id number] [facility] 2018-05-21 13:44:47 2018-05-21 13:44:47 Outpatient [facility] [id number] [facility] 2018-05-19 00:00:00 2018-05-19 00:00:00 Outpatient [facility] [id number] [facility] 2018-05-18 00:00:00 2018-05-18 00:00:00 Outpatient [facility] [id number] [facility] 2018-04-23 08:53:18 2018-04-23 08:53:18 Outpatient [facility] [id number] [facility] 2018-04-22 14:22:46 2018-04-22 14:22:46 Outpatient [facility] [id number] [facility] 2018-03-19 00:00:00 2018-03-19 00:00:00 Outpatient [facility] [id number] [facility] 2018-03-18 14:30:29 2018-03-18 14:30:29 Outpatient [facility] [id number] [facility] 2018-03-18 00:00:00 2018-03-18 00:00:00 Outpatient [facility] [id number] [facility] 2018-02-26 00:00:00 2018-02-26 00:00:00 Outpatient [facility] [id number] [facility] 2018-02-17 00:00:00 2018-02-17 00:00:00 Outpatient [facility] [id number] [facility] 2018-02-12 07:52:14 2018-02-12 07:52:14 Outpatient [facility] [id number] [facility] 2018-02-12 00:00:00 2018-02-12 00:00:00 Outpatient [facility] [id number] [facility] 2018-02-06 09:47:57 2018-02-06 09:47:57 Outpatient [facility] [id number] [facility] 2018-01-23 08:37:58 2018-01-23 08:37:58 Outpatient [facility] [id number] [facility] 2018-01-21 11:37:10 2018-01-21 11:37:10 Outpatient [facility] [id number] [facility] 2018-01-21 00:00:00 2018-01-21 00:00:00 Outpatient [facility] [id number] [facility] 2018-01-08 00:00:00 2018-01-08 00:00:00 Outpatient [facility] [id number] [facility] 2017-12-29 00:00:00 2017-12-29 00:00:00 Outpatient [facility] [id number] [facility] 2017-12-16 00:00:00 2017-12-16 00:00:00 Outpatient [facility] [id number] [facility] 2017-12-01 00:00:00 2017-12-01 00:00:00 Outpatient [facility] [id number] [facility] 2017-11-30 14:20:00 2017-11-30 18:22:00 Departed Emergency Room [facility] [id number] [facility] 2017-11-21 15:23:17 2017-11-21 15:23:17 Outpatient [facility] [id number] [facility] 2017-11-21 13:44:01 2017-11-21 13:44:01 Outpatient [facility] [id number] [facility] 2017-11-21 00:00:00 2017-11-21 00:00:00 Outpatient [facility] [id number] [facility] 2017-11-13 00:00:00 2017-11-13 00:00:00 Outpatient [facility] [id number] [facility] 2017-10-29 00:00:00 2017-10-29 00:00:00 Outpatient [facility] [id number] [facility] 2017-10-24 00:00:00 2017-10-24 00:00:00 Outpatient [facility] [id number] [facility] 2017-10-23 00:00:00 2017-10-23 00:00:00 Outpatient [facility] [id number] [facility] 2017-10-17 00:00:00 2017-10-17 00:00:00 Outpatient [facility] [id number] [facility] 2017-10-13 00:00:00 2017-10-13 00:00:00 Outpatient [facility] [id number] [facility] 2017-09-25 00:00:00 2017-09-25 00:00:00 Outpatient [facility] [id number] [facility] 2017-09-24 00:00:00 2017-09-24 00:00:00 Outpatient [facility] [id number] [facility] 2017-09-22 00:00:00 2017-09-22 00:00:00 Outpatient [facility] [id number] [facility] 2017-09-17 11:02:36 2017-09-17 11:02:36 Outpatient [facility] [id number] [facility] 2017-09-15 00:00:00 2017-09-15 00:00:00 Outpatient [facility] [id number] [facility] 2017-09-15 00:00:00 2017-09-15 00:00:00 Outpatient [facility] [id number] [facility] 2017-08-27 00:00:00 2017-08-27 00:00:00 Outpatient [facility] [id number] [facility] 2017-08-25 00:00:00 2017-08-25 00:00:00 Outpatient [facility] [id number] [facility] 2017-08-15 10:06:17 2017-08-15 10:06:17 Outpatient [facility] [id number] [facility] 2017-08-12 13:30:33 2017-08-12 13:30:33 Outpatient [facility] [id number] [facility] 2017-08-11 00:00:00 2017-08-11 00:00:00 Outpatient [facility] [id number] [facility] 2017-08-08 10:18:48 2017-08-08 10:18:48 Outpatient [facility] [id number] [facility] 2017-08-08 00:00:00 2017-08-08 00:00:00 Outpatient [facility] [id number] [facility] 2017-07-25 08:06:50 2017-07-25 08:06:50 Outpatient [facility] [id number] [facility] 2017-07-24 11:00:14 2017-07-24 11:00:14 Outpatient [facility] [id number] [facility] 2017-07-08 08:27:57 2017-07-08 08:27:57 Outpatient [facility] [id number] [facility] 2017-07-07 08:42:11 2017-07-07 08:42:11 Outpatient [facility] [id number] [facility] 2017-07-03 00:00:00 2017-07-03 00:00:00 Outpatient [facility] [id number] [facility] 2017-04-03 00:00:00 2017-04-03 00:00:00 Outpatient [facility] [id number] [facility] 2017-03-06 08:52:36 2017-03-06 08:52:36 Outpatient [facility] [id number] [facility] 2017-03-05 10:06:47 2017-03-05 10:06:47 Outpatient [facility] [id number] [facility] 2017-03-05 00:00:00 2017-03-05 00:00:00 Outpatient [facility] [id number] [facility] 2017-02-17 14:20:43 2017-02-17 14:20:43 Outpatient [facility] [id number] [facility] 2017-01-21 13:21:17 2017-01-21 13:21:17 Outpatient [facility] [id number] [facility] 2017-01-08 12:02:21 2017-01-08 12:02:21 Outpatient [facility] [id number] [facility] 2016-12-24 08:12:40 2016-12-24 08:12:40 Outpatient [facility] [id number] [facility] 2016-12-24 00:00:00 2016-12-24 00:00:00 Outpatient [facility] [id number] [facility] 2016-12-13 09:23:28 2016-12-13 09:23:28 Outpatient [facility] [id number] [facility] 2016-12-13 07:30:23 2016-12-13 07:30:23 Outpatient [facility] [id number] [facility] 2016-12-10 14:46:20 2016-12-10 14:46:20 Outpatient [facility] [id number] [facility] 2016-12-06 10:53:13 2016-12-06 10:53:13 Outpatient [facility] [id number] [facility] 2016-12-06 00:00:00 2016-12-06 00:00:00 Outpatient [facility] [id number] [facility] 2016-11-28 08:09:44 2016-11-28 08:09:44 Outpatient [facility] [id number] [facility] 2016-11-05 07:28:39 2016-11-05 07:28:39 Outpatient [facility] [id number] [facility] 2016-10-31 09:01:52 2016-10-31 09:01:52 Outpatient [facility] [id number] [facility] 2016-10-31 06:26:55 2016-10-31 06:26:55 Outpatient [facility] [id number] [facility] 2016-10-30 14:29:33 2016-10-30 14:29:33 Outpatient [facility] [id number] [facility] 2016-10-30 14:23:52 2016-10-30 14:23:52 Outpatient [facility] [id number] [facility] 2016-10-30 13:15:16 2016-10-30 13:15:16 Outpatient [facility] [id number] [facility] 2016-10-29 14:55:04 2016-10-29 14:55:04 Outpatient [facility] [id number] [facility] 2016-02-14 08:49:57 2016-02-14 08:49:57 Outpatient [facility] [id number] [facility] 2013-12-01 12:07:00 2013-12-01 23:59:00 Outpatient [facility] [id number] [facility] Outpatient Imaging - [place] Results Test Description Test Time Test Comments Results Result Comments Source MRI KNEE LEFT WO 2020-08-30 15:29:[address] [facility] 1965 Sex: [place] [address] Patient Name: TONI CROCKETT MR #: [id number] : 1965 Age/Sex: 55/F Req #: [id number] Adm Physician: Ordered by: ELI ESCALERA MD Report #: [id number] Location: MRI Room/Bed: Procedure: [id number] MRI/MRI KNEE LEFT WO Exam Date: Exam Time: REPORT STATUS: Signed TECHNIQUE: Magnetic resonance imaging of the LEFT KNEE was performed WITHOUT injected contrast. HISTORY: Pain COMPARISON: None available. FINDINGS: LIGAMENTS AND TENDONS: ACL: Intact PCL: Intact Collateral ligaments: Intact Iliotibial band: Unremarkable Popliteal tendon: Intact Extensor mechanism: Intact Mild thickening and increased signal along the myotendinous junction of the medial head of the gastrocnemius muscle. Questionable partial avulsion from the femoral attachment site (series 3 image 26). JOINT: Menisci: Medial: Undersurface fraying at the body/posterior horn junction without discrete tear. Lateral: Intact Articular Cartilage: Medial Compartment: No focal defect. Lateral Compartment: No focal defect. Patellofemoral Compartment: No focal defect. Joint Fluid: The amount of fluid within the joint is within physiologic limits. BONE: No fo sharmin or infiltrative bone marrow replacing abnormality. No acute fracture. SOFT TISSUES: Otherwise, unremarkable. IMPRESSION: 1. Thickening and increased signal at the myotendinous junction of the medial head of the gastrocnemius muscle, concerning for low-grade strain with questionable partial avulsion from the femoral attachment site. 2. Undersurface fraying of the medial meniscus without discrete tear. 3. No additional meniscus, ligament, tendon, or cartilage abnormalities. Signed by: Dr. Chicho Clark M.D. on 08/30/2020 4:25 PM Dictated By: CHICHO CLARK MD 24 Transcribed By: RILEY on 08/30/201624 COPY TO: ELI ESCALERA MD FOOT COMPLETE BILATERAL 2020-08-30 13:01:00 [facility] 1965 Sex: F [place] [address] Patient Name: TONI NORWOOD MR #: [id number] : 1965 Age/Sex: 55/F Req #: [id number] [facility] Physician: Ordered by: KIMBERLY ERICKSON Report #: [id number] Location: [facility] Room/Bed: Procedure: [id number] DX/FOOT COMPLETE BILATERAL Exam Date: 08/30/20 Exam Time: 1213 REPORT STATUS: Signed EXAMINATION: FOOT COMPLETE BILATERAL INDICATION: Foot pain COMPARISON: None FINDINGS: AP, lateral and oblique images of both feet demonstrate no acute fracture or dislocation. Alignment is anatomic. No substantial degenerative change. The soft tissues appear unremarkable. Right greater than left plantar calcaneal spurs. IMPRESSION: No acute osseous injury of either foot. Right greater than left small plantar calcaneal spurs. Signed by: Arturo Obando MD on 08/30/2020 1:03 PM Dictated By: ARTURO OBANDO MD 02 Transcribed By: RILEY on 08/30/201302 COPY TO: KIMBERLY ERICKSON KNEE 4 + VIEWS LT 2020-08-30 12:40:00 [facility] : 1965 Sex: [place] [address] Patient Name: TONI NORWOOD MR #: [id number] : 1965 Age/Sex: 55/F Req #: [id number] Adm Physician: Ordered by: KIMBERLY ERICKSON Report #: [id number] Location: [facility] Room/Bed: Procedure: [id number] DX/KNEE 4 + VIEWS LT Exam Date: 08/30/20 Exam Time: 1213 REPORT STATUS: Signed EXAMINATION: KNEE 4 + VIEWS RT, KNEE 4 + VIEWS LT INDICATION: Knee pain COMPARISON: None FINDINGS: AP, lateral, oblique, and sunrise views of both knees demonstrate no acute fracture or dislocation. Alignment is anatomic. No substantial degenerative change. No joint effusion. The soft tissues appear unremarkable. IMPRESSION: No acute osseous injury of either knee. Signed by: Arturo Obando MD on 08/30/2020 12:42 PM Dictated By: ARTURO OBANDO MD 41 Transcribed By: RILEY on 08/30/20 124 COPY TO: KIMBERLY ERICKSON KNEE 4 + VIEWS RT 2020-08-30 12:40:00 [facility] : 1965 Sex: [place] [address] Patient Name: TONI NORWOOD MR #: [id number] : 1965 Age/Sex: 55/F Req #: [id number] Adm Physician: Ordered by: KIMBERLY ERICKSON Report #: [id number] Location: [facility] Room/Bed: Procedure: [id number] DX/KNEE 4 + VIEWS RT Exam Date: 08/30/20 Exam Time: 1213 REPORT STATUS: Signed EXAMINATION: KNEE 4 + VIEWS RT, KNEE 4 + VIEWS LT INDICATION: Knee pain COMPARISON: None FINDINGS: AP, lateral, oblique, and sunrise views of both knees demonstrate no acute fracture or dislocation. Alignment is anatomic. No substantial degenerative change. No joint effusion. The soft tissues appear unremarkable. IMPRESSION: No acute osseous injury of either knee. Signed by: Arturo Obando MD on 08/30/2020 12:42 PM Dictated By: ARTURO OBANDO MD 41 Transcribed By: RILEY on 08/30/20 124 COPY TO: KIMBERLY ERICKSON HAND TWO VIEWS BILATERAL 2020-08-30 12:39:00 [facility] : 1965 Sex: F [place] [address] Patient Name: TONI NORWOOD MR #: [id number] : 1965 Age/Sex: 55/F Req #: [id number] [facility] Physician: Ordered by: KIMBERLY ERICKSON Report #: [id number] Location: [facility] Room/Bed: Procedure: [id number] DX/HAND TWO VIEWS BILATERAL Exam Date: 08/30/20 Exam Time: 1213 REPORT STATUS: Signed EXAMINATION: HAND TWO VIEWS BILATERAL INDICATION: Hand pain COMPARISON: None FINDINGS: 2 views of both hands demonstrate no acute fracture or dislocation. Alignment is anatomic. No substantial degenerative change or evidence of erosive arthropathy. The soft tissues appear unremarkable. IMPRESSION: No acute osseous injury of either hand. Signed by: Arturo Obando MD on 08/30/2020 12:40 PM Dictated By: ARTURO OBANDO MD 124 Transcribed By: RILEY on 08/30/20 1240 COPY TO: KIMBERLY ERICKSON HIPS BILAT TWO VWS(+/- PELVIS) 2020-08-30 12:30:00 [facility] : 1965 Sex: [place] [address] Patient Name: TONI NORWOOD MR #: [id number] : 1965 Age/Sex: 55/F Req #: [id number] [facility] Physician: Ordered by: KIMBERLY ERICKSON Report #: [id number] Location: [facility] Room/Bed: Procedure: [id number] DX/HIPS BILAT TWO VWS(+/- PELVIS) Exam Date: Exam Time: REPORT STATUS: Signed EXAMINATION: HIPS BILAT TWO VWS(+/- PELVIS) INDICATION: Hip pain COMPARISON: None FINDINGS: AP and frog-leg views of both hips were obtained. No acute fracture or dislocation. Alignment is anatomic. No substantial degenerative change. Soft tissues appear unremarkable. IMPRESSION: No acute osseous injury of either hip. Signed by: Arturo Obando MD on 08/30/2020 12:32 PM Dictated By: ARTURO OBANDO MD 1232 Transcribed By: RILEY on 08/30/20 1232 COPY TO: KIMBERLY ERICKSON B-TYPE NATRIURETIC PEPTIDE 2020-08-14 15:01:00 Test Item B-TYPE NATRIURETIC PEPTIDE (test code = BNP) 14.46 pgram/mL 0-100 N HCG SERUM [id number] 13:12:00* Test Item Value Reference Range Interpretation Comments HCG SERUM BETA (test code = HCG) 4.3 mIU/mL 0-3 H INTERPRETATION:B-HCG LEVELS <5 SHOULD BE CONSIDERED "NEGATIVE." *WHEN BODERLINE RESULTS ARE ENCOUNTERED,PATIENT SAMPLESSHOULD BE REDRAWN 48 HOURS. 0-1 WEEKS AFTER CONCEPTION 5-50 MIU/ML1-2 WEEKS AFTER CONCEPTION 50-500 MIU/ML2-3 WEEKS AFTER CONCEPTION 100 -5,000 MIU/ML3-4 WEEKS AFTER CONCEPTION 500-10,000 MIU/ML4-5 WEEKS AFTER CONCEPTION 1000 -50,000 MIU/ML5-6 WEEKS AFTER CONCEPTION 10,000-100,000 MIU/ML6-8 WEEKS AFTER CONCEPTION 15,000- 200,000 MIU/ML2-3 MONTHS AFTER CONCEPTION 10,000-100,000 MIU/ML BASIC METABOLIC [id number] 12:28:00* Test Item Value Reference Range Interpretation Comments SODIUM (test code = NA) 142 mmol/L 136-145 N POTASSIUM (test code = K) 4.5 mmol/L 3.5-5.1 N CHLORIDE (test code = CL) 109.0 mmol/L 98-107 H CARBON DIOXIDE (test code = CO2) 26.0 mmol/L 21-32 N ANION GAP (test code = GAP) 11.5 10-20 N GLUCOSE (test code = GLU) 88 mg/dL 74-106 N BLOOD UREA NITROGEN (test code = BUN) 16 mg/dL 7-18 N GLOMERULAR FILTRATION RATE (test code = GFR) > 60 mL/min >=60 Estimated GFR by using Modified MDRD formula.Chronic kidney disease is defined as either kidney damageor GFR <60 mL/min/1.73 m2 for >3 months. CREATININE (test code = CREAT) 0.70 mg/dL 0.55-1.02 N Note change in reference range due to change in reagent. BUN/CREATININE RATIO (test code = BUN/CREA) 22.9 10-20 H CALCIUM (test code = CA) 9.3 mg/dL 8.5-10.1 N HCG SERUM [id number] 12:28:00* Test Item Value Reference Range Interpretation Comments HCG SERUM QUAL (test code = HCGQL) POSITIVE NEGATIVE A This HCGQL test is NOT applicable for MALE patients.Check with nurse about probable order error.If Tumor Marker Test needed, nurse should order test "HCGTU"(Test #550.08960) [id number] 12:28:00* Test Item Value Reference Range Interpretation Comments TROPONIN-I (test code = TROPI) <0.015 ng/mL 0-0.045 N BASIC METABOLIC [id number] 12:19:00* Test Item Value Reference Range Interpretation Comments SODIUM (test code = NA) 142 mmol/L 136-145 N POTASSIUM (test code = K) 4.5 mmol/L 3.5-5.1 N CHLORIDE (test code = CL) 109.0 mmol/L 98-107 H CARBON DIOXIDE (test code = CO2) 26.0 mmol/L 21-32 N ANION GAP (test code = GAP) 11.5 10-20 N GLUCOSE (test code = GLU) 88 mg/dL 74-106 N BLOOD UREA NITROGEN (test code = BUN) 16 mg/dL 7-18 N GLOMERULAR FILTRATION RATE (test code = GFR) > 60 mL/min >=60 Estimated GFR by using Modified MDRD formula.Chronic kidney disease is defined as either kidney damageor GFR <60 mL/min/1.73 m2 for >3 months. CREATININE (test code = CREAT) 0.70 mg/dL 0.55-1.02 N Note change in reference range due to change in reagent. BUN/CREATININE RATIO (test code = BUN/CREA) 22.9 10-20 H CALCIUM (test code = CA) 9.3 mg/dL 8.5-10.1 N HCG SERUM [id number] 12:19:00* Test Item Value Reference Range Interpretation Comments HCG SERUM QUAL (test code = HCGQL) NEGATIVE [id number] 12:19:00* Test Item Value Reference Range Interpretation Comments TROPONIN-I (test code = TROPI) <0.015 ng/mL 0-0.045 N BASIC METABOLIC [id number] 12:16:00* Test Item Value Reference Range Interpretation Comments SODIUM (test code = NA) 142 mmol/L 136-145 N POTASSIUM (test code = K) 4.5 mmol/L 3.5-5.1 N CHLORIDE (test code = CL) 109.0 mmol/L 98-107 H CARBON DIOXIDE (test code = CO2) 26.0 mmol/L 21-32 N ANION GAP (test code = GAP) 11.5 10-20 N GLUCOSE (test code = GLU) 88 mg/dL 74-106 N BLOOD UREA NITROGEN (test code = BUN) 16 mg/dL 7-18 N GLOMERULAR FILTRATION RATE (test code = GFR) > 60 mL/min >=60 Estimated GFR by using Modified MDRD formula.Chronic kidney disease is defined as either kidney damageor GFR <60 mL/min/1.73 m2 for >3 months. CREATININE (test code = CREAT) 0.70 mg/dL 0.55-1.02 N Note change in reference range due to change in reagent. BUN/CREATININE RATIO (test code = BUN/CREA) 22.9 10-20 H CALCIUM (test code = CA) 9.3 mg/dL 8.5-10.1 N HCG SERUM [id number] 12:16:00* Test Item Value Reference Range Interpretation Comments HCG SERUM QUAL (test code = HCGQL) NEGATIVE [id number] 12:16:00* Test Item Value Reference Range Interpretation Comments TROPONIN-I (test code = TROPI) ng/mL 0-0.045 BASIC METABOLIC [id number] 12:13:00* Test Item Value Reference Range Interpretation Comments SODIUM (test code = NA) 142 mmol/L 136-145 N POTASSIUM (test code = K) 4.5 mmol/L 3.5-5.1 N CHLORIDE (test code = CL) 109.0 mmol/L 98-107 H CARBON DIOXIDE (test code = CO2) mmol/L 21-32 ANION GAP (test code = GAP) 10-20 GLUCOSE (test code = GLU) mg/dL 74-106 BLOOD UREA NITROGEN (test code = BUN) mg/dL 7-18 GLOMERULAR FILTRATION RATE (test code = GFR) mL/min >=60 CREATININE (test code = CREAT) mg/dL 0.55-1.02 BUN/CREATININE RATIO (test code = BUN/CREA) 10-20 CALCIUM (test code = CA) 9.3 mg/dL 8.5-10.1 N HCG SERUM [id number] 12:13:00* Test Item Value Reference Range Interpretation Comments HCG SERUM QUAL (test code = HCGQL) NEGATIVE [id number] 12:13:00* Test Item Value Reference Range Interpretation Comments TROPONIN-I (test code = TROPI) ng/mL 0-0.045 CBC W/O [id number] 11:58:00* Test Item Value Reference Range Interpretation Comments WHITE BLOOD CELL (test code = WBC) 5.8 K/mm3 4.5-12.5 N RED BLOOD CELL (test code = RBC) 4.37 mill/mm3 3.7-5.2 N HEMOGLOBIN (test code = HGB) 13.5 gram/dL 11.5-15.5 N HEMATOCRIT (test code = HCT) 41.2 % 36.0-46.0 N MEAN CELL VOLUME (test code = MCV) 94.3 fL 80-98 N MEAN CELL HGB (test code = MCH) 30.9 picogram 27.0-33.0 N MEAN CELL HGB CONCETRATION (test code = MCHC) 32.8 gram/dL 33.0-36. 0 L RED CELL DISTRIBUTION WIDTH (test code = RDW) 13.2 % 11.6-16. 2 N PLATELET COUNT (test code = PLT) 253 K/mm3 150-450 N MEAN PLATELET VOLUME (test code = MPV) 10.4 fL 6.7-11.0 N - XR CHEST 1 [id number] 11:46:00 [facility] : 1965 Sex: F FAX: Ines Oakley [phone] [place]: B St: REG Name: ROSEMARY NORWOOD [facility] : 1965 Age/S: 54/F [address] [facility] Unit #: [id number] Loc: SHAYLA Yad[place] [address] Phys: Ines Lui MD Acct: [id number] Dis Date: Status: REG ER PHONE #: [phone] Exam Da te: 08/14/2020 1200 FAX #: [phone] Reason: SY NCOPE EXAMS: CPT CODE: [id number] XR CHEST 1 V 84485 HISTORY: Syncope. COMPARISON: N one available Location: [facility]. No acute infiltrates, e ffusion or congestion is noted. The cardiac and mediastinal silhou ette are within normal limits. IMPRESSION: N o acute infiltrates, effusion or congestion. at 1146 Reported and s igned by: Josh Potts M.D. CC: Ines Lui MD Technologist: RT Bria(Darian) Trnscrd Date/Time/By: 08/14/2020 (1146) : By: [email or web address] Orig Print D/T: S: 08/14/2020 (1200) PAGE 1 Signed Report COMPREHENSIVE METABOLIC [id number] 11:28:00* Test Item Value Reference Range Interpretation Comments SODIUM (test code = NA) 141 mmol/L 136-145 N POTASSIUM (test code = K) 4.1 mmol/L 3.5-5.1 N CHLORIDE (test code = CL) 109.0 mmol/L 98-107 H CARBON DIOXIDE (test code = CO2) 27.0 mmol/L 21-32 N ANION GAP (test code = GAP) 9.1 10-20 L GLUCOSE (test code = GLU) 96 mg/dL 74-106 N BLOOD UREA NITROGEN (test code = BUN) 16 mg/dL 7-18 N GLOMERULAR FILTRATION RATE (test code = GFR) > 60 mL/min >=60 Estimated GFR by using Modified MDRD formula.Chronic kidney disease is defined as either kidney damageor GFR <60 mL/min/1.73 m2 for >3 months. CREATININE (test code = CREAT) 0.80 mg/dL 0.55-1.02 N Note change in reference range due to change in reagent. BUN/CREATININE RATIO (test code = BUN/CREA) 20.0 10-20 N TOTAL PROTEIN (test code = PROT) 7.3 gram/dL 6.4-8.2 N ALBUMIN (test code = ALB) 3.4 g/dL 3.4-5.0 N GLOBULIN (test code = GLOB) 3.9 gram/dL 2.7-4.2 N ALBUMIN/GLOBULIN RATIO (test code = A/G) 0.9 0.75-1.50 N CALCIUM (test code = CA) 9.6 mg/dL 8.5-10.1 N BILIRUBIN TOTAL (test code = BILT) 0.30 mg/dL 0.0-1.0 N SGOT/AST (test code = AST) 15 IUnit/L 15-37 N SGPT/ALT (test code = ALT) 20 IUnit/L 12-78 N ALKALINE PHOSPHATASE TOTAL (test code = ALKP) 145 IUnit/L 45-117 H Note change in reference range due to change in reagent. LIPID PROFILE (CORONARY RISK)2020-08-14 11:28:00* Test Item Value Reference Range Interpretation Comments TRIGLYCERIDES (test code = TRIG) 98 mg/dL 20-150 N CHOLESTEROL (test code = CHOL) 216 mg/dL 0-200 H CHOLESTEROL/HDL RATIO (test code = CHOLHDL) 2.0 RATIO 0-4.9 N RISK ASSOCIATED WITH CHOL/HDL RATIOS: Risk Male Female1/2 AVERAGE 3.43 3.27AVERAGE 4.97 4.442X AVERAGE 9.55 7.053X AVERAGE 23.39 11.04 REFERENCE VALUE IS RELATED TO RISK LEVELS ASRECOMMENDED BY THE GERMÁN. HEART, LUNG, AND BLOOD INST. HDL CHOLESTEROL (test code = HDL) 74 mg/dL 40-60 H LIPOPROTEIN LDL (test code = LDL) 122 mg/dL 100-129 N RN PERSONNEL, CONTACT PHYSICIAN IMMEDIATELY IF THIS IS A STROKE, AMI OR CAROTID STENOSIS PATIENT WHEN THE LDL >100 (1ST OCCURENCE, THIS ADMISSION) Reference Interval: mg/dL mmol/L Optimal <100 <2.6Near/above optimal 100-129 2.6- 3.3Borderline High 130-159 3.4-4.1High 160-189 4.1-4.9Very High >=190 >=4.9========= This LDL result is a direct measurement.========= - CT HEAD/BRAIN W/O [id number] 11:28:00 [facility]Name: TONI NORWOOD : 1965 Sex: F Name: TONI HAND [facility] : 5 Age/S: 54 / F [address] [facility] Unit #: [id number] Loc: KristieSHAYLA [address] Phys: Ines Lui MD Acct: [id number] Dis Date: Status: PRE ER PHONE #: [phone] Exam Date: 08/14/2020 1123 FAX #: [phone] Re ason: Syncope EXAMS: CPT CODE: [id number] CT HEAD/BRAIN W/O CONT 22908 HISTORY: Syncope. COMP ARISON: None available. Location: [facility]. CT brain with out contrast: Automated exposure control. No acute intracranial bl eeds or extra-axial collections are noted. No acute territorial vascular i nfarction is noted. The sulci, gyri, ventricles and subarachnoid s paces and the basilar cisterns are normal for patient's age. No herniation or hydrocephalus or midline shift is noted. Mild periventri cular ischemic gliosis is noted. Age-appropriate atrophy is noted as well. Portions of the visualized paranasal sinuses are normal. No obvious bony calvarial defect is noted. IMPRESSION: No acute intracranial bleeds or extra-axial collections. No acute territorial vascular infarction. No herniation or hydrocephalus or midline shift. Chronic white matter i schemic disease and atrophy . These findings were discussed [facility] Dr. Lui at 11:28 AM. FOR INTERNAL CODING PURPOSES ONLY RESULT CODE: CVR Electr onically Signed by Tamera Potts on 08/14/2020 at 1128 Reported and signed by: Josh Potts M.D. PAGE 1 Signed Report (CONTINUED) Name: TONI NORWOOD [facility] : 1965 Age/S: 54 / F [address] Unit #: [id number] Loc: SHAYLA [place] [address] Phys: Ines Lui MD Acct: [id number] Dis Date: Status: PRE ER PHONE #: [phone] Exam Date: 1123 FAX #: [phone] Reason: Syncope EXAMS: CPT CODE: [id number] CT HEAD/BRAIN W/O CONT 89818 <Continued> CC: Ines Lui MD Technologist:Ankush Montano RT(R),(MR),(CT); CTDI: DLP: Trnscb Date/Time: 08/14/2020 (1128) [email or web address] Orig Print D/T: S: 08/14/2020 (8698) PAGE 2 Signed Report CBC W/AUTO [id number] 11:22:00* Test Item Value Reference Range Interpretation Comments WHITE BLOOD CELL (test code = WBC) 5.7 K/mm3 4.5-12.5 N RED BLOOD CELL (test code = RBC) 4.45 mill/mm3 3.7-5.2 N HEMOGLOBIN (test code = HGB) 13.7 gram/dL 11.5-15.5 N HEMATOCRIT (test code = HCT) 41.7 % 36.0-46.0 N MEAN CELL VOLUME (test code = MCV) 93.7 fL 80-98 N MEAN CELL HGB (test code = MCH) 30.8 picogram 27.0-33.0 N MEAN CELL HGB CONCETRATION (test code = MCHC) 32.9 gram/dL 33.0-36. 0 L RED CELL DISTRIBUTION WIDTH (test code = RDW) 13.2 % 11.6-16. 2 N RED CELL DISTRIBUTION WIDTH SD (test code = RDW-SD) 45.4 fL 37 .0-51.0 N PLATELET COUNT (test code = PLT) 251 K/mm3 150-450 N MEAN PLATELET VOLUME (test code = MPV) 10.4 fL 6.7-11.0 N NEUTROPHIL % (test code = NT%) 49.0 % 39.0-69.0 N IMMATURE GRANULOCYTE % (test code = IG%) 0.2 % 0.0-5.0 N LYMPHOCYTE % (test code = LY%) 37.2 % 25.0-55.0 N MONOCYTE % (test code = MO%) 11.0 % 0.0-10.0 H EOSINOPHIL % (test code = EO%) 1.6 % 0.0-5.0 N BASOPHIL % (test code = BA%) 1.0 % 0.0-1.0 N NUCLEATED RBC % (test code = NRBC%) 0.0 % 0-0 N NEUTROPHIL # (test code = NT#) 2.81 K/mm3 1.8-7.7 N IMMATURE GRANULOCYTE # (test code = IG#) 0.01 x10 3/uL 0-0.03 N LYMPHOCYTE # (test code = LY#) 2.13 K/mm3 1.0-5.0 N MONOCYTE # (test code = MO#) 0.63 K/mm3 0-0.8 N EOSINOPHIL # (test code = EO#) 0.09 K/mm3 0.0-0.5 N BASOPHIL # (test code = BA#) 0.06 K/mm3 0.0-0.2 N NUCLEATED RBC # (test code = NRBC#) 0.00 K/mm3 0.0-0.1 N DIAG MAMM BILATERAL [place] CAD DIGITAL [id number] 11:09:28 - DIAG MAMM BILATERAL [place] CAD DIGITAL W/AUGMENTATIONBILATERAL DIGITAL DIAGNOSTIC MAMMOGRAM 3D/2D WITH CAD WITH AUGMENTATION: 05/05/2020CLINICAL: Focal pain, left breast. Digital breast tomosynthesis was performed in addition to routine CC and MLO views. Current mammographic images were evaluated by either a [employer] M- Vu or a [employer] Image[employer] CAD (computer aided detection system). Comparison is made to exams dated 03/23/2019 mammogram, 09/22/2018 mammogram, and 09/05/20 18 mammogram - [facility]-. The tissue of both breasts is hetero geneously dense. This may lower the sensitivity of mammography. Lateral retrope ctoral saline implants are intact. No suspicious mass, architectural distortion, malignant type calcification, or lymph node abnormality detected. BENIGNThere is no mammographic evidence of malignancy. Bilateral survey ultrasound to follo w.- BREAST ULTRASOUND BILATERALULTRASOUND OF BOTH BREASTS: 05/05/2020Comparison i s made to exams dated 03/23/2019 mammogram, 09/22/2018 mammogram, and 09/05/2018 mammogram - [facility]-. Color flow and real-time ultrasound of both breasts were performed. Torres scale images of the real-time examination we re reviewed. The breast tissue has heterogenous background echotexture. Bilat eral survey ultrasound demonstrates a few scattered simple cysts, benign, and no suspicious sonographic abnormality. No axillary lymphadenopathy.IMPRESSION: NE GATIVE There is no sonographic evidence of malignancy. Resume annual screening mammography in one year. Clinical follow is also recommended, and further manag ement of clinical findings should be based on clinical examination.Zeyad dixon M.D. ss/:05/08/2020 11:09:28 Entry: - 05/08/2020 11:09:28co py to: Kimani Colon MD, ph: [phone], fax: [phone] Technolog ist: Amirah Christianson , [facility]-letter sent: BIRADS 1-2 No rmal Mammogram BI-RADS: 2 Benign Ultrasound BI-RADS: 1 NegativeBREAST ULTRASOUND [id number] 11:09:28 - DIAG MAMM BILATERAL [place] CAD DIGITAL W/AUGMENTATIONBILATERAL DIGITAL DIAGNOSTIC MAMMOGRAM 3D/2D WITH CAD WITH AUGMENTATION: 05/05/2020CLINICAL: Focal pain, left breast. Digital breast tomosynthesis was performed in addition to routine CC and MLO views. Current mammographic images were evaluated by either a [employer] M-Vu or a [employer] ImageChecker CAD (computer aided detection system). Comparison is made to exams dated 03/23/2019 mammogram, 09/22/2018 mammogram, and 09/05/2018 [facility]. The tissue of both breasts is heterogeneously dense. This may lower the sensitivity of mammography. Lateral retropectoral saline implants are intact. No suspicious mass, architectural distortion, malignant type calcification, or lymph node abnormality detected. BENIGNThere is no mammographic evidence of malignancy. Bilateral survey ultrasound to follow.- BREAST ULTRASOUND BILATERALULTRASOUND OF BOTH BREASTS: 05/05/2020Comparison is made to exams dated 03/23/2019 mammogram, 09/22/2018 mammogram, and 09/05/2018 mammogram - [facility]-. Color flow and real-time ultrasound of both breasts were performed. Torres scale images of the real-time examination we re reviewed. The breast tissue has heterogenous background echotexture. Bilat eral survey ultrasound demonstrates a few scattered simple cysts, benign, and no suspicious sonographic abnormality. No axillary lymphadenopathy.IMPRESSION: NE GATIVE There is no sonographic evidence of malignancy. Resume annual screening mammography in one year. Clinical follow is also recommended, and further manag ement of clinical findings should be based on clinical examination.Zeyad dixon M.D. ss/:05/08/2020 11:09:28 Entry: - 05/08/2020 11:09:28co py to: Kimani Colon MD, ph: [phone], fax: [phone] Technolog ist: Amirah Christianson , [facility] sent: BIRADS 1-2 No rmal Mammogram BI-RADS: 2 Benign Ultrasound BI-RADS: 1 Negative- CT NECK W/O [id number] 08:31:00 Name: CUCOTONI [facility] : 1965 Age/S: 54 / F [address] [facility] Unit #: [id number] Loc: [place] [address] Phys: Georgette Rivers MD Acct: [id number] Dis Date: Status: REG CLI PHONE #: [phone] Exam Date: 04/11/2020818 FAX #: [phone] Reason: NECK MASS EXAMS: CPT CODE: [id number] CT NECK W/O CONTRAST 85167 HISTORY: NECK MASS TECHNIQUE: 2.[address] of the neck without contrast. Sagittal and coronal reformatted images were generated. Automated exposure control for dose reduction. COMPARISON: None FINDINGS: Limited evaluation the neck soft tissues without IV contrast. The aerodigestive structures are within normal limits. Specifically, the nasal cavity, nasopharynx, oral cavity, oropharynx, hypopharynx, larynx, and visualized trachea and esophagus demonstrate no masses or abnormal enhancement. Tongue, base of tongue, and floor of mouth are unremarkable. No evidence of supraglottic, glottic, or infraglottic lesion. Upper trachea is patent. Thyroid gland is unremarkable. The parotid glands appear within normal limits. The thyroid gland is normal in size without focal abnormality. The right submandibular gland appears slightly larger compared to the left. However the gland parenchyma is symmetric and within normal limits with no adjacent inflammatory changes. No pathologically enlarged, necrotic, or otherwise abnormal lymph nodes. Visualized intracranial compartments are unremarkable. Intraorbital structures are within normal limits. Visualized paranasal sinuses are clear. Bilateral mastoid air cells and middle ear cavities are well aerated. There is height loss of the intervertebral disc spaces throughout the cervical spine that is most pronounced at C3-C4. There is also reversal of cervical lordosis. Lung apices are clear. IMPRESSION: Asymmetry of the submandibular glands with the right gland appearing slightly larger than the left. However no stone or adjacent PAGE 1 Signed Report (CONTINUED) Name: TONI NORWOOD [facility] : 1965 Age/S: 54 / F [address] [facility] #: [id number] Loc: [place], [place] [address] Phys: Georgette Rivers MD Acct: [id number] Dis Date: Status: REG CLI PHONE #: [phone] Exam Date: 04/11/2020818 FAX #: [phone] Reason: NECK MASS EXAMS: CPT CODE: [id number] CT NECK W/O CONTRAST 12771 < Continued> inflammatory changes are appreciated. Remainder of this exam is within normal limits. Degenerative changes of the cervical spine. Location: [facility] at 0831 Reported and signed by: Zander Garza MD CC: Technologist:Anastacia Almanza,RT(R),CT CTDI: DLP: Trnscb Date/Time: 04/11/2020 (0831) [email or web address] Orig Print D/T: S: 04/11/2020 (9039) PAGE 2 Signed Report PELVIS AP 1-2 [id number] 15:48:00 [place] [address] Patient Name: TONI NORWOOD MR #: [id number] : 1965 Age/Sex: 54/F Req #: [id number] Adm Physician: Ordered by: MARC GRIJALVA M.D. Report #: [id number] Location: RAD Room/Bed: Procedure: [id number] DX/PELVI S AP 1-2 VIEWS Exam Date: 03/16/20 Exam Time: 1515 REPORT STATUS: Signed Frontal rad iograph of the pelvis. Densities over the right hip joint could be overlying t he patient or artifactual. HISTORY: Pain. Fibromyalgia. COMPARISON: None available. FINDINGS: Bones: No acute displaced fracture. Osse ous alignment is within normal limits. Joints: Scattered degenerative malathi nge. No osseous erosion. Soft tissues: The soft tissues appear unremarkab le. 2 Scott-shaped densities over the right hip joint could be overlying the patient or artifactual. Small metallic densities over the lower sacrum. IMPRESSION: Scattered degenerative change. No osseous erosion. Signed by: Dr. Ryan Morel M.D. on 03/16/2020 3:52 PM Dictated By: RYAN MOREL MD, MD 51 Transcr ibed By: RILEY on 03/16/201551 COPY TO: MARC GRIJALVA M.D. SP LUMBAR, COMPLETE MIN [id number] 15:47:00 [place] [address] Patient Name: TONI NORWOOD MR #: [id number] : 1965 Age/Sex: 54/F Req #: [id number] Adm Physician: Ordered by: MARC GRIJALVA M.D. Report #: [id number] Location: RAD Room/Bed: Procedure: [id number] DX/SP CLEMENTINA MBAR, COMPLETE MIN 4VW Exam Date: 03/16/20 Exam Time : 151 REPORT STATUS: Signed Rad iographs of the lumbar spine 5 views with bilateral obliques. HISTORY: Chasity n. Fibromyalgia. COMPARISON: None available. FINDINGS: Bones: No acute displaced fracture. Hypoplastic ribs at L1. Osseous alignment is with in normal limits. Joints: Scattered degenerative change. No osseous erosi on. No pars interarticularis defects. Soft tissues: The soft tissues ap pear unremarkable. IMPRESSION: Scattered degenerative change. No osse ous erosion. No pars interarticularis defects. Signed by: Dr. Ryan Morel M.D. on 03/16/2020 3:48 PM Dictated By: RYAN MOREL MD, MD Electronica lly Signed By: RYAN MOREL MD, MD on 03/16/20 154 Transcribed By: RILEY on 03/16/20 154 COPY TO: MARC GRIJALVA M.D. HAND TWO VIEWS [id number] 15:44:00 [place] [address] Patient Name: TONI NORWOOD MR #: [id number] : 1965 Age/Sex: 54/F Req #: [id number] Adm Physician: Ordered by: MARC GRIJALVA M.D. Report #: [id number] Location: [facility] Room/Bed: Procedure: [id number] DX/HAND TWO VIEWS BILATERAL Exam Date: 03/16/20 Exam Time: 1 516 REPORT STATUS: Signed Radiog raphs of the right and left hands 3 views each hand HISTORY: Pain. Fibromy algia. COMPARISON: None available. FINDINGS: Bones: No acute dis placed fracture. Osseous alignment is within normal limits. Joints: S cattered degenerative change. No osseous erosion. Soft tissues: The soft tissues appear unremarkable. IMPRESSION: Scattered degenerative olivier e. No osseous erosion. Signed by: Dr. Ryan Morel M.D. on 03/16/2020 3:47 P M Dictated By: RYAN MOREL MD, MD 46 Transcribed By: RILEY on 03/16/201546 COPY T O: MARC GRIJALVA M.D. [facility] [id number] 16:23:00 [place] [address] Patient Name: TONI CROCKETT MR #: [id number] : 1 Age/Sex: 54/F Req #: [id number] Adm Physician: Ordered by: GEORGETTE RIVERS MD Report #: [id number] Location: US Room/Bed: Procedure: [id number] US /US THYROID Exam Date: 03/13/20 Exam Time: 1343 REPORT STATUS: Signed Thyroid ult rasound. History: Right thyroid mass Comparison: None available. Discussion: Transverse and longitudinal images of the thyroid were obtained demonstrating diffusely heterogeneous echogenicity of the thyroid. The sizes of the lobes are normal with the right thyroid lobe measuring 4.1 x 1.3 x 1.6 cm and the left measuring 4.3 x 1.5 x 1.3 cm. The isthmus is within normal l imits. Nodules: Right - 1.0 x 0.5 x 1.0 cm oval circumscribed mixed cysti c solid nodule in the upper pole. 0.9 and 0.5 cm cysts are also noted in the l ower pole. Left - 0.5 cm cyst in the interpolar region. IMPRESSIO N: 1 cm right thyroid nodule, TI-RADS 3, no follow-up recommended due to smal l size, and bilateral thyroid cysts, TI- RADS 1. Signed by: Rios smith on 03/13/2020 4:29 PM Dictated By: RIOS SUE MD Electronically Sign ed By: RIOS SUE MD on 03/13/20 1629 Transcribed By: RILEY on 03/13/20 16 29 COPY TO: GEORGETTE RIVERS MD CT CHEST [id number] 17:04:00 [place] [address] Patient Name: TONI NORWOOD MR #: [id number] : 1965 Age/Sex: 54/F Req #: [id number] Adm Physician: Ordered by: FRANCISCO HAQUE MD Report #: [id number] Location: RESP Room/Bed: Procedure: [id number] CT/CT CHEST WO Exam Date: 12/02/19 Exam Time: 1520 REPORT STATUS: Signed EXAM: CT Ch est WITHOUT intravenous contrast 12/02/2019 1:56 PM INDICATION: Cough, asthma COMPARISON: Chest radiograph 07/18/2018, CT abdomen and pelvis 11/12/2018 TECHN IQUE: Chest was scanned utilizing a multidetector helical scanner from the jeanmarie g apex through the level of the adrenal glands without administration of IV co ntrast. Coronal and sagittal reformations were obtained. Routine protocol was performed. IV CONTRAST: None RADIATION DOSE: Total DLP: 534.9 mGy*cm. D ose modulation, iterative reconstruction, and/or weight based adjustment of th e mA/kV was utilized to reduce the radiation dose to as low as reasonably achi evable. COMPLICATIONS: None FINDINGS: LINES/ TUBES: None. LUNG S AND AIRWAYS: The central airways are patent. No focal consolidation or pulm onary edema. No suspicious pulmonary nodules. PLEURA: The pleural spaces a re clear. HEART AND MEDIASTINUM: 9 mm left thyroid and 7 mm right thyroid h ypodense nodules are likely clinically insignificant and do not require furthe r imaging follow-up. No supraclavicular, mediastinal, or hilar lymphadenopathy . No axillary lymphadenopathy. The heart is not enlarged. No pericardial effus ion. UPPER ABDOMEN: No acute findings. BONES: No acute osseous injur y. No suspicious lytic blastic lesions. SOFT TISSUES: Bilateral saline jerry st implants. IMPRESSION: No acute cardiopulmonary process. Signed b y: Arturo Obando MD on 12/02/2019 5:09 PM Dictated By: ARTURO OBANDO MD Electro nically Signed By: ARTURO OBANDO MD on 12/02/19 2392 Transcribed By: RILEY on 1708 COPY TO: FRANCISCO HAQUE MD - US HEAD AND NECK 2019-11-08 12:52:00 Name: TONI NORWOOD [facility] : 1965 Age/S: 54 / F [address] Unit #: [id number] Loc: [place] [address] Phys: Georgette Rivers MD Acct: [id number] Dis Date: Status: REG CLI PHONE #: [phone] Exam Date: 11/08/2019 1100 FAX #: [phone] Reason: THYROID NODULES EXAMS: CPT CODE: [id number] US HEAD AND NECK 91314 HISTORY: Thyroid nodules. COMPARISON: None available. Bilateral thyroid ultrasound: Location: [facility]. FINDINGS: Homogeneous echogenicity and texture. Symmetrical flow. Size: Isthmus: 4.3 mm in AP direction. Right lobe: 5.4 x 1.4 x 1.4 cm. Left lobe: 4.8 x 1.1 x 1.1 cm. Nodules: Multiple bilateral simple cysts which are categorized as TR 1. Single solid nodule in the right upper pole. This is measuring 1.2 cm and is well- circumscribed without echogenic foci. It is hyperechogenic as well. The margins are smooth and is also characterized as TR 1 and not suspicious. I would recommend follow-up in 12 months. IMPRESSION: Benign TR 1 category nodules bilaterally which are not suspicious. Follow-up in 12 months. Normal echogenicity and texture. Symmetrical flow. at 1252 Reported and signed by: Josh Potts M.D. CC: Technologist: CLYDE GALICIA RT(R),RDMS Trntxb Date/Time: 11/08/2019 (7572) [email or web address] Orig Print D/T: S: 11/08/2019 (8597) Probe: PAGE 1 Signed Report [id number] 14:53:00* Test Item Value Reference Range Interpretation Comments TROPONIN-I (test code = TROPI) <0.015 ng/mL 0-0.045 N BASIC METABOLIC [id number] 14:33:00* Test Item Value Reference Range Interpretation Comments SODIUM (test code = NA) 138 mmol/L 136-145 N POTASSIUM (test code = K) 3.5 mmol/L 3.5-5.1 N CHLORIDE (test code = CL) 102.0 mmol/L 98-107 N CARBON DIOXIDE (test code = CO2) 27.0 mmol/L 21-32 N ANION GAP (test code = GAP) 12.5 10-20 N GLUCOSE (test code = GLU) 93 mg/dL 74-106 N BLOOD UREA NITROGEN (test code = BUN) 12 mg/dL 7-18 N GLOMERULAR FILTRATION RATE (test code = GFR) 58 mL/min >=60 Estimated GFR by using Modified MDRD formula.Chronic kidney disease is defined as either kidney damageor GFR <60 mL/min/1.73 m2 for >3 months. CREATININE (test code = CREAT) 1.00 mg/dL 0.55-1.02 N Note change in reference range due to change in reagent. BUN/CREATININE RATIO (test code = BUN/CREA) 12.1 10-20 N CALCIUM (test code = CA) 10.1 mg/dL 8.5-10.1 N DILANTIN (PHENYTOIN)2019-09-27 14:33:00* Test Item Value Reference Range Interpretation Comments DILANTIN (PHENYTOIN) (test code = DIL) 1.3 ug/mL 10.0-20.0 L BASIC METABOLIC [id number] 14:25:00* Test Item Value Reference Range Interpretation Comments SODIUM (test code = NA) 138 mmol/L 136-145 N POTASSIUM (test code = K) 3.5 mmol/L 3.5-5.1 N CHLORIDE (test code = CL) 102.0 mmol/L 98-107 N CARBON DIOXIDE (test code = CO2) mmol/L 21-32 ANION GAP (test code = GAP) 10-20 GLUCOSE (test code = GLU) mg/dL 74-106 BLOOD UREA NITROGEN (test code = BUN) mg/dL 7-18 GLOMERULAR FILTRATION RATE (test code = GFR) mL/min >=60 CREATININE (test code = CREAT) mg/dL 0.55-1.02 BUN/CREATININE RATIO (test code = BUN/CREA) 10-20 CALCIUM (test code = CA) mg/dL 8.5-10.1 DILANTIN (PHENYTOIN)2019-09-27 14:25:00* Test Item Value Reference Range Interpretation Comments DILANTIN (PHENYTOIN) (test code = DIL) ug/mL 10.0-20.0 CBC W/O [id number] 14:18:00* Test Item Value Reference Range Interpretation Comments WHITE BLOOD CELL (test code = WBC) 7.0 K/mm3 4.5-12.5 N RED BLOOD CELL (test code = RBC) 5.12 mill/mm3 3.7-5.2 N HEMOGLOBIN (test code = HGB) 15.7 gram/dL 11.5-15.5 H HEMATOCRIT (test code = HCT) 46.6 % 36.0-46.0 H MEAN CELL VOLUME (test code = MCV) 91.0 fL 80-98 N MEAN CELL HGB (test code = MCH) 30.7 picogram 27.0-33.0 N MEAN CELL HGB CONCETRATION (test code = MCHC) 33.7 gram/dL 33.0-36. 0 N RED CELL DISTRIBUTION WIDTH (test code = RDW) 13.1 % 11.6-16. 2 N PLATELET COUNT (test code = PLT) 263 K/mm3 150-450 N MEAN PLATELET VOLUME (test code = MPV) 10.2 fL 6.7-11.0 N [id number] 16:32:00 RUN DATE: 07/28/19 Penboost PAGE 1 RUN TIME: 1632 Specimen Inqui ry RUN USER: INTERFACE PATIENT: TONI NORWOOD ACCT #: [id number] LOC: [place] U #: [id number] AGE/SX: 53/F ROOM: RE07/23/19REG DR: Michael Bee MD : [birth year] BED: DIS: STATUS: [facility] [facility] [place]: SPEC #: [id number] RECD: 07/23/19 STATUS: [facility] #: [id number] SOFI: 07/23/19 DR: Michael Bee MD ENTERED: 07/23/19 SP TYPE: THYROID OTHR DR: Laurie Bourne MD ORDERED: GROSS COPIES TO: Laurie Ward MD [address] [place] [address] Michael Bee MD [address] [place] [address] PROCEDURES: GROSS (07/28/19151 ) TISSUES: THYROID GLAND, NOS - BX AND 2 SLIDES CLINICAL HISTO RY COLLECTION DATE: 07/23/2019 HISTORY OF THYROID NODULES; ANEMIA COMMENT Intradepartmental consultation: DMW FINAL DIAGNOSIS Thyroid, site not further specified, biopsy: THYROID TISSUE WITH ABUNDANT COLLOID MATERIAL AND SOME HEMOSIDERIN LADEN MACROPHAGES SUGGESTIVE OF NODULAR HYPERPLASIA (GOITER) UNREMARKABLE SKELETAL MUSCLE FIBERS PRESENT NEGATIVE FOR MALIGNANCY RRB/sm D 62841, 15217 CONTINUED ON NEXT PAGE RUN DATE: 07/28/19 [place] - Lab PAGE 2 RUN RADHA E: 1638 Specimen Inquiry RUN USER: INTERFACE -SPEC #: [id number] PATIENT: TONI NORWOOD #[id number] (Continued) MACROSCOPIC The specimen includes two to uch prep slides to be stained for cytologic evaluation. Also received in form brian in a container labeled with the patient's name and "thyroid" are fragment s of pink-dark maharaj tissue measuring 0.5 cm in aggregate. The tissue is submit harry for histologic evaluation in a single cassette. GROSS PERFORMED AT [facility] [address] [place] [address] [phone] MICROSCOPIC All of t he stains, including any controls performed, stain appropriately. MICR OSCOPIC PERFORMED AT [facility] [address] [place] [address] [phone] PERFORMING SITE Diagnosis performed at: [facility] [address] [place], [place] [address] Signed SIGNATURE ON FILE Vince Alvarado MD 07/28/19 1632 END OF REPORT - US HEAD AND [id number] 11:53:00 Name: TONI NORWOOD [facility] : 1965 Age/S: 53 / F [address] [facility] Unit #: [id number] Loc: [place] [address] Phys: Michael Bee MD Acct: [id number] Dis Date: Status: [facility] PHONE #: Exam Date: 07/23/2019 1125 FAX #: Reason: THYROID BX EXAMS: CPT CODE: [id number] US HEAD AND N [place] [address] REASON FOR EXAM: Thyroid lesions EXAM ORDER DATE: 07/23/2019 8:38 AM PROCEDURE : Ultrasound of the thyroid and ultrasound-guided thyroid lesion biopsy [facility] IV conscious sedation Jvun-wn-dtlv approximate procedure time i s 30 minutes FINDINGS: The isthmus measured 0.2 cm. The right lobe of the thyroid gland measured 4.9 x 1.1 cm. The multiple sm all lesions noted within the right thyroid with the largest lesion measure d 0.8 x 0.6 cm The left lobe of the thyroid gland measured 4.7 x 1 .2 cm. 2 small lesion seen within the left lobe with the largest lesion me asures 0.5 x 0.4 cm The neck was prepped and draped in the u sual sterile fashion. Informed consent was obtained prior to the procedure . All elements of maximal sterile barrier technique were applied. Under di rect ultrasound guidance, 2% local lidocaine was given and a 14-gauge biop sy gun was advanced into the largest lesion in the right lobe. 2 samples w ere obtained. The needle was removed and hemostasis obtained. MEDICATIONS: 1 mg of Versed, 50 mcg of fentanyl Complications: No immedi ate Blood loss: Less than 5 cc IMPRESSION: Technically suc cessful ultrasound-guided core biopsy of the largest lesion in the right lobe of the thyroid gland measuring 0.8 x 0.6 cm. Electroni davie Signed by Tamera Bee on 07/23/2019 at 1153 Repor harry and signed by: Michael Bee M.D. CC: Technologist: FABIOLA HILTON RT(R),RDMS Trnscb Date/Time: 07/23/2019 (1153) tFLORVTL Orig Print D/T: S: 07/23/2019 (7606) Probe: PAGE 1 Signed Report - USG NDL PLACEMENT (Bxg/Asp)2019-07-23 11:53:00 Name: TONI NORWOOD [facility] : 1965 Age/S: 53 / F [address] [facility] Unit #: [id number] Loc: [place] [address] Phys: Michael Bee MD Acct: [id number] Dis Date: Status: [facility] PHONE #: [phone] Exam Date: 07/23/2019 1120 FAX #: [phone] Reason: THYROID BX EXAMS: CPT CODE: [id number] USG NDL PLACEMENT (Bxg/Asp) 44173 REASON FOR EXAM: Thyroid lesions EXAM ORDER DATE: 07/23/2019 8:38 AM PROCEDURE: Ultrasound of the thyroid and ultrasound-guided thyroid lesion biopsy with IV conscious sedation Vbse-rs-lwhe approximate procedure time is 30 minutes FINDINGS: The isthmus measured 0.2 cm. The right lobe of the thyroid gland measured 4.9 x 1.1 cm. The multiple small lesions noted within the right thyroid with the largest lesion measured 0.8 x 0.6 cm The left lobe of the thyroid gland measured 4.7 x 1.2 cm. 2 small lesion seen within the left lobe with the largest lesion measures 0.5 x 0.4 cm The neck was prepped and draped in the usual sterile fashion. Informed consent was obtained prior to the procedure. All elements of maximal sterile barrier technique were applied. Under direct ultrasound guidance, 2% local lidocaine was given and a 14-gauge biopsy gun was advanced into the largest lesion in the right lobe. 2 samples were obtained. The needle was removed and hemostasis obtained. MEDICATIONS: 1 mg of Versed, 50 mcg of fentanyl Complications: No immedi ate Blood loss: Less than 5 cc IMPRESSION: Technically suc cessful ultrasound-guided core biopsy of the largest lesion in the right lobe of the thyroid gland measuring 0.8 x 0.6 cm. Electroni davie Signed by Tamera Bee on 07/23/2019 at 1153 Repor harry and signed by: Michael Bee M.D. CC: Technologist: FABIOLA HILTON RT(R),ALEJA Trntxb Date/Time: 07/23/2019 (3293) t.ROBR.VTL Orig Print D/T: S: 07/23/2019 (8905) Probe: PAGE 1 Signed Report - USG NDL PLACEMENT (Bxg/Asp)2019-07-23 11:53:00 Name: TONI NORWOOD [facility] : 1965 Age/S: 53 / F [address] [facility] Unit #: [id number] Loc: [place] [address] Phys: Michael Bee MD Acct: [id number] Dis Date: Status: [facility] PHONE #: [phone] Exam Date: 07/23/2019 1120 FAX #: [phone] Reason: THYROID BX EXAMS: CPT CODE: [id number] USG NDL PLACEMENT (Bxg/Asp) 56147 REASON FOR EXAM: Thyroid lesions EXAM ORDER DATE: 07/23/2019 8:38 AM PROCEDURE: Ultrasound of the thyroid and ultrasound-guided thyroid lesion biopsy with IV conscious sedation Lvvy-pl-hcvg approximate procedure time is 30 minutes FINDINGS: The isthmus measured 0.2 cm. The right lobe of the thyroid gland measured 4.9 x 1.1 cm. The multiple small lesions noted within the right thyroid with the largest lesion measured 0.8 x 0.6 cm The left lobe of the thyroid gland measured 4.7 x 1.2 cm. 2 small lesion seen within the left lobe with the largest lesion measures 0.5 x 0.4 cm The neck was prepped and draped in the usual sterile fashion. Informed consent was obtained prior to the procedure. All elements of maximal sterile barrier technique were applied. Under direct ultrasound guidance, 2% local lidocaine was given and a 14-gauge biopsy gun was advanced into the largest lesion in the right lobe. 2 samples were obtained. The needle was removed and hemostasis obtained. MEDICATIONS: 1 mg of Versed, 50 mcg of fentanyl Complications: No immedi ate Blood loss: Less than 5 cc IMPRESSION: Technically suc cessful ultrasound-guided core biopsy of the largest lesion in the right lobe of the thyroid gland measuring 0.8 x 0.6 cm. Kartihki davie Signed by Tamera Bee on 07/23/2019 at 1153 Repor harry and signed by: Michael Bee M.D. CC: Technologist: FABIOLA HILTON RT(R),RDMS Trntxb Date/Time: 07/23/2019 (6203) tFLORVTL Orig Print D/T: S: 07/23/2019 (9686) Probe: PAGE 1 Signed Report - US HEAD AND NECK 2019-07-23 11:53:00 Name: TONI NORWOOD [facility] : 1965 Age/S: 53 / F [address] [facility] Unit #: [id number] Loc: [facility] [place] [address] Phys: Michael Bee MD Acct: [id number] Dis Date: Status: [place] [facility]ONE #: [phone] Exam Date: 07/23/2019 1120 FAX #: [phone] Reason: THYROID BX EXAMS: CPT CODE: [id number] US HEAD AND NECK 31872 REASON FOR EXAM: Thyroid lesions EXAM ORDER DATE: 07/23/2019 8:38 AM PROCEDURE: Ultrasound of the thyroid and ultrasound-guided thyroid lesion biopsy with IV conscious sedation Vbjg-er-rjyr approximate procedure time is 30 minutes FINDINGS: The isthmus measured 0.2 cm. The right lobe of the thyroid gland measured 4.9 x 1.1 cm. The multiple small lesions noted within the right thyroid with the largest lesion measured 0.8 x 0.6 cm The left lobe of the thyroid gland measured 4.7 x 1.2 cm. 2 small lesion seen within the left lobe with the largest lesion measures 0.5 x 0.4 cm The neck was prepped and draped in the usual sterile fashion. Informed consent was obtained prior to the procedure. All elements of maximal sterile barrier technique were applied. Under direct ultrasound guidance, 2% local lidocaine was given and a 14-gauge biopsy gun was advanced into the largest lesion in the right lobe. 2 samples were obtained. The needle was removed and hemostasis obtained. MEDICATIONS: 1 mg of Versed, 50 mcg of fentanyl Complications: No immediate Blood loss: Less than 5 cc IMPRESSION: Technically successful ultrasound-guided core biopsy of the largest lesion in the right lobe of the thyroid gland measuring 0.8 x 0.6 cm. at 1153 Reported and signed by: Michael Bee M.D. CC: Technologist: FABIOLA HILTON(Darian),ALEJA [facility] Date/Time: 07/23/2019 (2903) t.DIRK Orig Print D/T: S: 07/23/2019 (2601) Probe: PAGE 1 Signed Report PROTHROMBIN [id number] 09:42:00 * Test Item Value Reference Range Interpretation Comments PROTHROMBIN TIME PATIENT (test code = PTP) 11.4 seconds 9.0-14.0 N INTERNATIONAL NORMAL RATIO (test code = INR) 1.0 0.8-1.2 N The therapeutic range for oral anticoagulant therapy formost indications is an international normalized ratio (INR)of between 2.0 and 3.0. The recommended therapeutic INRrange for various clinical situations is listed below: Clinical Situation INR range Pulmonary e mbolism treatment (2.0-3.0)Venous thrombosis treatmentVenous thrombosis prophylaxis (high risk surgery)Prevention of systemic embolism from: Acute myocardial infarction Valvular heart disease Atrial fibrillation Mechanical prosthetic heart valves (2.5-3.5) THROMBOPLASTIN TIME [id number] 09:42:00* Test Item Value Reference Range Interpretation Comments THROMBOPLASTIN TIME PARTIAL (test code = PTT) 31.9 seconds 25.0-36. 5 N US [id number] 14:51:00 [place] [address] Patient Name: TONI NORWOOD MR #: [id number] : 1965 Age/Sex: 53/F Req #: [id number] Adm Physician: Ordered by: BRAYAN CALIX M.D. Report #: [id number] Location: US Room/Bed: Procedure: [id number] [id number] US/US THYROID Exam Date: Exam Time: REPORT STATUS: Signed EXAM: Thyroid Ult rasound INDICATION: ABS TSH COMPARISON: None TECHNIQUE: Saavedra sverse and sagittal images were obtained of the thyroid gland. FINDINGS: Thyroid gland: Size: Right lobe: 5.4 x 1.5 x 1.6 cm, Normal in size Left lobe: 4.5 x 1.4 x 1.4 cm, Normal in size Isthmus: 0.3 cm, Normal in siz e Appearance: Homogeneous echotexture without increased vascularity Masses/N odules: Right lobe: 1.4 x 0.7 x 1.1 cm solid (2 pts) nodule in the int erpolar region with smooth margin (0 pts), lfjar-nzqd-xqho (0 pts), hypoechoic (2 pts), and no calcifications (0 pts). TR4b (1.0-1.5 cm), Moderately Suspic ious: Follow at 1, 2, 3, 5 years. 0.8 x 0.5 x 1.0 cm solid (2 pts) nodule in the inferior pole with smooth margin (0 pts), hwomk-fkqq-wmrk (0 pts), hyp oechoic (2 pts), and no calcifications (0 pts). TR4a (<1.0 cm): No follow-up. Isthmus: 0.5 x 0.3 x 0.4 cm solid (2 pts) nodule in the isthmus with smooth margin (0 pts), mnewj-jare-pnco (0 pts), hypoechoic (2 pts), and no calcifications (0 pts). TR4a (<1.0 cm): No follow-up. Left lobe: 0.7 x 0.4 x 0.5 cm solid (2 pts) nodule in the superior pole with smooth margin (0 pts), gaowm-fwnk-brcc (0 pts), hypoechoic (2 pts), and macrocalcifications (1 pt). TR4a (<1.0 cm): No follow-up. 0.6 x 0.3 x 0.4 cm solid (2 pts) nodule in the inferior pole with smooth margin (0 pts), tzboo-wkzc-thmu (0 pts), hypoechoic (2 pts), and no calcifications (0 pts). TR4a (<1.0 cm): No follow-up. Parathyroid: No focal parathyroid masses. Lymph nodes: No adenopathy. IMPRESSION: 1. Normal bilateral thyroid lobe size and echogenicity. 2. 1.4 cm solid hypoechoic nodule in the right interpolar region for which follow-up thyroid ultrasound is recommended in 12 months TR4b (1.0-1.5 cm), Moderately Suspicious: Follow at 1, 2, 3, 5 years. 3. Other bilateral nodules require no further follow-up per TIRADS.. TI-RADS Lexicon: TR1, Benign: No FNA TR2, Not Suspicious: No FNA. TR3a (< 1.5 cm): No follow-up. TR3b (1.5-2.5 cm), Mildly Suspicious: Follow at 1, 3, 5 years. TR3c (>2.5 cm), Mildly Suspicious: FNA. TR4a (<1.0 cm): No follow-up. TR4b (1.0-1.5 cm), Moderately Suspicious: Follow at 1, 2, 3, 5 years. TR4c ( >1.5 cm), Moderately Suspicious: FNA. TR5a (<0.5 cm): No follow-up. TR5b (0.5-1.0 cm), Highly Suspicious: Follow at 1, 2, 3, 4, 5 years. TR5c (>1.0 cm), Highly Suspicious: FNA. *Rebiopsy if new suspicious features *No r ecommendation at this time for significant interval growth. Nodule Jeni cteristics: * Benign features: cystic, hyperechoic, comet-tail artifact, comp lete halo * Minor suspicious features: solid, hypoechoic, other calcification s * Major suspicious features: microcalcifications, marked hypoechoic (less t hutton strap muscle), suspicious lymph nodes, taller than wide, lobulated or il l-defined margins. Literature: ACR Thyroid Imaging, Reporting and Data S ystem (TI-RADS): White Paper of the ACR TI-RADS Committee. J Am Sofi Radiol 20 17. Signed by: Dr. Maximiliano Rose M.D. on 05/19/2019 2:58 PM Dict ated By: MAXIMILIANO ROSE MD 57 COPY TO: Renetta CALIX M.D. BREAST ULTRASOUND [id number] 09:42:39- BREAST ULTRASOUND BILATERALULTRASOUND OF BOTH BREASTS AND BOTH AXILLA: 03/23/20 19CLINICAL: Follow up to previous exam. Comparison is made to exams dated 08/28 ultrasound, 12/10/2017 ultrasound, and 06/29/2015 ultrasound [facility]-. Ultrasound of both breasts and both axilla was performed. Torres scale images of the real-time examination were reviewed. LEFT BREAST: At 6 o' clock, 2 cm from the nipple, a subcentimeter simple cyst was seen. RIGHT BREAST : At 8 o'clock, 6 cm from the nipple, a subcentimeter simple cyst was seen. At 10 o'clock, 8 cm from the nipple, a subcentimeter minimally complicated cyst was seen. No additional or suspicious sonographic findings in either breast or ax illa.IMPRESSION: BENIGN There is no sonographic evidence of malignancy. Benign sonographic findings bilaterally.Resume annual screening mammography in one year . Simon ruano/:03/23/2019 09:42:39 copy to: Nancy JUNE, ph: [phone], fax: [phone] Technologist: Cindy Thomas , [facility]-letter sent: BIRADS 1-2 Combo FU Letter Ultrasound BI -RADS: 2 BenignDIAG MAMM RIGHT [place] CAD DIGITAL W/[id number] 09:40:36 - DIAG MAMM RIGHT [place] CAD DIGITAL W/AUGMENTATIONUNILATERAL RIGHT DIGITAL DIAGNOSTIC MAMMOGRAM 3D/2D WITH CAD WITH AUGMENTATION: 03/23/2019CLINICAL: 6 Month follow-up. Digital breast tomosynthesis was performed in addition to routine CC and MLO views. Current mammographic images were evaluated by either a [employer] M-Vu or a [employer] CAD (computer aided detection system). Comparison is made to exams dated 09/05/2018 mammogram, 09/26/2017 mammogram, and 06/29/2015 mammogram - [facility]-. The tissue of the right breast is heterogeneously dense. This may lower the sensitivity of mammography. Scattered benign-appearing microcalcifications in the right breast were seen. Intact right breast implant was noted.Otherwise, no suspicious mass, architectural distortion, malignant type calcification, or lymph node abnormality detected. IMPRESSION: INCOMPLETE ASSESSMENT: ADDITIONAL IMAGING EVALUATION RECOMMENDEDBenign findings right mammogram. Additional evaluation with bilateral breast ultrasound is requested and currently in progress.Simon ruano/:03/23/2019 09:40:36 copy to: Nancy JUNE, ph: [phone], fax: [phone] Te chnologist: Princess Logan , [facility]-Mammogram BI-RADS: 0 I ndeterminate- NM GASTRIC [id number] 10:18:00 FAX: John Paul Boudreaux [phone] [place]: St: DEP Name: TONI HODGES [facility] : 08/[birth year] Age/S: 53/F [address] [facility] Unit #: [id number] Loc: [facility] [place] [address] Phys: John Paul Alexis MD Acct: [id number] Dis Date: Status: DEP CLI PHONE #: [phone] Exam Date: 03/18/2019 1001 FAX #: [phone] Reason: R10.13,789.06,I10,E66.9,401.9 EXAMS: CPT CODE: [id number] NM GASTRIC EMPTYING 86001 TECHNIQUE - NM GASTRIC EMPTYING . 1 mCi technetium 99 sulfur colloid COMPARISON: None provided. HISTORY: 53 years Female R10.13,789.06,I10,E66.9,401.9 FINDINGS: Normal distension of stomach. T 1/2 of gastric emptying is 35.9 minutes. Emptying percentages as follo ws: 15 minutes: 48 % emptying. 30 minutes: 68 % emp tying. 45 minutes: 83 % emptying. 60 minutes: 94 % emptying. 90 minutes: 97 % emptying. IMPRESSION: Gastric emptying is within normal limits. at 1018 Reported and signed by: Keyla Kwon M.D. CC: John Paul Alexis MD Technologist: SHERI HARDEN Trnscrd Date/Time/By: 03/18/2019 (1018) : By: Albert Orig Print D/T: S: 03/18/2019 (4956) PAGE 1 Signed Report - NM GASTRIC [id number] 10:18:00 FAX: John Paul Boudreaux [phone] [place]: St: REG Name: TONI HODGES [facility] : 08/23/19 65 Age/S: 53/F [address] [facility] Unit #: [id number] Loc: [place] [address] Phys: John Paul Alexis MD Acct: [id number] Dis Date: Status: REG CLI PHONE #: [phone] Exam Date: 03/18/2019 1001 FAX #: [phone] Reason: R10.13,789.06,I10,E66.9,401.9 EXAMS: CPT CODE: [id number] NM GASTRIC EMPTYING 09804 TECHNIQUE - NM GASTRIC EMPTYING . 1 mCi technetium 99 sulfur colloid COMPARISON: None provided. HISTORY: 53 years Female R10.13,789.06,I10,E66.9,401.9 FINDINGS: Normal distension of stomach. T 1/2 of gastric emptying is 35.9 minutes. Emptying percentages as follo ws: 15 minutes: 48 % emptying. 30 minutes: 68 % emp tying. 45 minutes: 83 % emptying. 60 minutes: 94 % emptying. 90 minutes: 97 % emptying. IMPRESSION: Gastric emptying is within normal limits. at 1018 Reported and signed by: Keyla Kwon M.D. CC: John Paul Alexis MD Technologist: SHERI HARDEN Trnscrd Date/Time/By: 03/18/2019 (1018) : By: Albert Duckworth Print D/T: S: 03/18/2019 (3512) PAGE 1 Signed Report - XR TIBIA/FIBULA 2 V LT 2019-02-10 22:09:00 Name: TONI NORWOOD [facility] : 1965 Age/S:53 /F [address] [facility] Unit#:[id number] Loc: [place] [address] Phys: Criss Carlson FAMILY SOCIOLOGIST Dis Date: PHONE #: [phone] Status: DEP ER FAX #: [phone] Exam Date: 02/10/2019 Reason: fall twist pain left lat ankle EXAMS: CPT CODE: [id number] XR TIBIA/FIBULA 2 [place] [address] REASON FOR EXAM: fall twist pain left lat ankle EXAM ORDER DATE: 02/10/2019 9:41 PM Ordering MEsthela: Criss Carlson NP PROCEDURE: - XR TIBIA/FIBULA 2 V LT FINDINGS: 2 views of the left lower extremity were obtained. The osseous structures are unremarkable in size and shape. The joint spaces are maintained. No evidence of fracture. There is normal alignment of the left knee and ankle joint IMPRESSION: Unremarkable left tibia and fibula at 2209 Reported and signed by: Michael Bee M.D. CC: Naseem Aponte MD Technologist: HELENA MCCARTHY(R),RDMS,CT Trnsct Data: 02/10/2019 (2208) t.JOSE CRUZ.VTL Orig Print D/T: S: 02/10/2019 (7372) PAGE 1 Signed Report - XR TIBIA/FIBULA 2 V [id number] 22:09:00 Name: TONI NORWOOD [facility] : 1965 Age/S:53 /F [address] [facility] Unit#:[id number] Loc: [place] [address] Phys: Renetta Carlson FAMILY SOCIOLOGIST Dis Date: PHONE #: [phone] Status: DEP ER FAX #: [phone] Exam Date: 02/10/2019 Re ason: fall twist pain left lat ankle EXAMS: CPT CODE: [id number] XR TIBIA/FIBULA 2 [place] [address] REASON FOR E XAM: fall twist pain left lat ankle EXAM ORDER DATE: 02/10/2019 9: 41 PM Ordering Tamera: Criss Carlson NP PROCEDURE: - XR TIBIA/FIBULA 2 V LT FINDINGS: 2 views of the left lower extre mity were obtained. The osseous structures are unremarkable in size and sh ape. The joint spaces are maintained. No evidence of fracture. There is n ormal alignment of the left knee and ankle joint IMPRESSIO N: Unremarkable left tibia and fibula at 2209 Reported and signed by: Shawna Bee M.D. CC: Naseem Aponte MD Technologist: HELENA MCCARTHY RT(R),RDMS,CT Trnscrpt Data: 02/10/2019 (2208) t.SDR.VTL Orig Print D/T: S: 02/10/2019 (2065) PAGE 1 Signed Report - XR TIBIA/FIBULA 2 V [id number] 22:09:00 Name: TONI NORWOOD [facility] : 1965 Age/S:53 /F [address] [facility] Unit#:[id number] Loc: [place] [address] Phys: Criss Carlson NP Dis Date: PHONE #: [phone] Status: REG ER FAX #: [phone] Exam Date: 02/10/2019 Reason: fall twist pain left lat ankle EXAMS: CPT CODE: [id number] XR TIBIA/FIBULA 2 [place] [address] REASON FOR EXAM: fall twist pain left lat ankle EXAM ORDER DATE: 02/10/2019 9:41 PM Ordering Tamera: Criss Carlson NP PROCEDURE: - XR TIBIA/FIBULA 2 V LT FINDINGS: 2 views of the left lower extremity were obtained. The osseous structures are unremarkable in size and shape. The joint spaces are maintained. No evidence of fracture. There is normal alignment of the left knee and ankle joint IMPRESSION: Unremarkable left tibia and fibula at 2209 Reported and signed by: Michael Bee M.D. CC: Naseem Aponte MD Technologist: HELENA MCCARTHY(R),RDMS,CT Trnscrpt Data: 02/10/2019 (2208) Asmita Orig Print D/T: S: 02/10/2019 (2211) PAGE 1 Signed Report - XR ANKLE 3 + V [id number] 22:08:00 Name: TONI NORWOOD [facility] : 1965 Age/S:53 /F [address] [facility] Unit#:[id number] Loc: [place] [address] Phys: Criss Carlson NP Dis Date: PHONE #: [phone] Status: DEP ER FAX #: [phone] Exam Date: 02/10/2019 Reason: fall twist pain left lat ankle EXAMS: CPT CODE: [id number] XR ANKLE 3 + V LT [address] REASON FOR EXAM: fall twist pain left lat ankle EXAM ORDER DATE: 02/10/2019 9:41 PM Ordering Tamera: Criss Carlson NP PROCEDURE: - XR ANKLE 3 + V LT FINDINGS: 3 views of the left ankle were obtained. The osseous structures are unremarkable in size and shape. The joint spaces are maintained. No evidence of fracture. The syndesmosis is intact. IMPRESSION: Unremarkable left ankle at 2208 Reported and signed by: Michael Bee M.D. CC: Naseem Aponte MD Technologist: HELENA MCCARTHY),RDMS,CT Trnscrpt Data: 02/10/2019 (2207) FlorindaVTJasmyne Orig Print D/T: S: 02/10/2019 (2211) PAGE 1 Signed Report - XR FOOT 3 + V [id number] 22:08:00 Name: CUCOTONI [facility] : 1965 Age/S:53 /F [address] [facility] Unit#:[id number] Loc: [place] [address] Phys: Criss Carlson FAMILY SOCIOLOGIST Dis Date: PHONE #: [phone] Status: DEP ER FAX #: [phone] Exam Date: 02/10/2019 Reason: fall twist pain left lat ankle EXAMS: CPT CODE: [id number] XR FOOT 3 + V LT [address] REASON FOR EXAM: fall twist pain left lat ankle EXAM ORDER DATE: 02/10/2019 9:41 PM Ordering Tamera: Criss Carlson NP PROCEDURE: - XR FOOT 3 + V LT FINDINGS: 3 views of the left foot were obtained. The osseous structures are unremarkable in size and shape. The joint spaces are maintained. No evidence of fracture. The phalanges are intact. The metatarsal and tarsal bones are unremarkable IMPRESSION: Unremarkable left foot at 2208 Reported and signed by: Michael Bee M.D. CC: Naseem Aponte MD Technologist: HELENA MCCARTHY RT(R),RDMS,CT [facility] Data: 02/10/2019 (2207) t.VTL Orig Print D/T: S: 02/10/2019 (3302) PAGE 1 Signed Report - XR ANKLE 3 + V LT 2019-02-10 22:08:00 Name: TONI NORWOOD [facility] : 1965 Age/S:53 /F [address] [facility] Unit#:[id number] Loc: [place] [address] Phys: Criss Carlson FAMILY SOCIOLOGIST Dis Date: PHONE #: [phone] Status: [facility] ER FAX #: [phone] Exam Date: 02/10/2019 Reason: fall twist pain left lat ankle EXAMS: CPT CODE: [id number] XR ANKLE 3 + V LT [address]84 REASON FOR EXAM: fall twist pain left lat ankle EXAM ORDER DATE: 02/10/2019 9:41 PM Ordering Tamera: Criss Carlson NP PROCEDURE: - XR ANKLE 3 + V LT FINDINGS: 3 views of the left ankle were obtained. The osseous structures are unremarkable in size and shape. The joint spaces are maintained. No evidence of fracture. The syndesmosis is intact. IMPRESSION: Unremarkable left ankle at 2208 Reported and signed by: Michael Bee M.D. CC: Naseem Aponte MD Technologist: HELENA MCCARTHY RT(R),RDMS,CT Trnscrpt Data: 02/10/2019 (2207) t.SDR.VTL Orig Print D/T: S: 02/10/2019 (8822) PAGE 1 Signed Report - XR FOOT 3 + V [id number] 22:08:00 Name: TONI NORWOOD [facility] : 1965 Age/S:53 /F [address] [facility] Unit#:[id number] Loc: [place] [address] Phys: Renetta Carlson NP Dis Date: PHONE #: [phone] Status: [facility] ER FAX #: [phone] Exam Date: 02/10/2019 Re ason: fall twist pain left lat ankle EXAMS: CPT CODE: [id number] XR FOOT 3 + [place] LT [address] REASON FOR E XAM: fall twist pain left lat ankle EXAM ORDER DATE: 02/10/2019 9: 41 PM Ordering Tamera: Criss Carlson NP PROCEDURE: - XR FOOT 3 + V LT FINDINGS: 3 views of the left foot were obtaine d. The osseous structures are unremarkable in size and shape. The joint sp aces are maintained. No evidence of fracture. The phalanges are intact. The metatarsal and tarsal bones are unremarkable IMPRESS ION: Unremarkable left foot at 2208 Reported and signed by: Michael Bee M.D. CC: Naseem Aponte MD Technologist: HELENA MCCARTHY(R),RDMS,CT Trnscrpt Data: 02/10/2019 (2207) Lori.VTJasmyne Orig Print D/T: S: 02/10/2019 (1) PAGE 1 Signed R eport - XR FOOT 3 + V [id number] 22:08:00 [facility] 1965 Age/S:53 /F [address] [place] [address] Unit#:[id number] Loc: [place] [address] Phys: Renetta Carlson NP Dis Date: PHONE #: [phone] Status: REG ER FAX #: [phone] Exam Date: 02/10/2019 Re ason: fall twist pain left lat ankle EXAMS: CPT CODE: [id number] XR FOOT 3 + V LT [address]84 REASON FOR E XAM: fall twist pain left lat ankle EXAM ORDER DATE: 02/10/2019 9: 41 PM Ordering Tamera: Criss Carlson NP PROCEDURE: - XR FOOT 3 + V LT FINDINGS: 3 views of the left foot were obtaine d. The osseous structures are unremarkable in size and shape. The joint sp aces are maintained. No evidence of fracture. The phalanges are intact. The metatarsal and tarsal bones are unremarkable IMPRESS ION: Unremarkable left foot at 2208 Reported and signed by: Michael Bee M.D. CC: Naseem Aponte MD Technologist: HELENA MCCARTHY RT(R),RDMS,CT Trnsct Data: 02/10/2019 (2207) Lori.MARS Orig Print D/T: S: 02/10/2019 (1) PAGE 1 Signed R eport - XR ANKLE 3 + V [id number] 22:08:00 [facility] 1965 Age/S:53 /F [address] [facility] Unit#:[id number] Loc: [place] [address] Phys: Renetta Carlson NP Dis Date: PHONE #: [phone] Status: REG ER FAX #: [phone] Exam Date: 02/10/2019 Re ason: fall twist pain left lat ankle EXAMS: CPT CODE: [id number] XR ANKLE 3 + V LT [address] REASON FOR E XAM: fall twist pain left lat ankle EXAM ORDER DATE: 02/10/2019 9: 41 PM Ordering Tamera: Criss Carlosn NP PROCEDURE: - XR ANKLE 3 + V LT FINDINGS: 3 views of the left ankle were obtai logan. The osseous structures are unremarkable in size and shape. The joint spaces are maintained. No evidence of fracture. The syndesmosis is intact . IMPRESSION: Unremarkable left ankle Electronical ly Signed by Tamera Bee on 02/10/2019 at 2208 Reported and signed by: Michael Bee M.D. CC: Naseem Aponte MD Technologist: HELENA MCCARTHY RT(R),RDMS,CT Trnscrpt Data: 02/10/2019 (2207) t.SDR.VTL Orig Print D/T: S: 02/10/2019 (4728) PAGE 1 Signed Report XR Chest 1 View [id number] 15:19:18Patient: TONI NORWOOD Date/Time12/30/2018 14:57 CSTReason for ExamChest painReportCHEST 1 VIEWCLINICAL INFORMATION: Chest painCOMPARISON: None availableFINDINGS:The lungs are well-expanded and clear. No airspace consolidation is seen. No pneumothorax or pleural effusion is present. The cardiac silhouette is normal in size. The bones are grossly intact.IMPRESSION:No acute cardiopulmonary finding.LOCATION: R16 Final Dictated by: MD Neff Adam FDictated DT/TM: 12/30/2018 3:18 pmSigned by: MD Neff Adam FSigned (Electronic Signature): 12/30/2018 3:19 pmCT ABDOMEN/PELVIS [id number] 09:28:00 [place] [address] Patient Name: TONI NORWOOD MR #: [id number] : 1965 Age/Sex: 53/F Req #: [id number] [facility] Physician: Ordered by: JOHN PAUL ALEXIS MD Report #: [id number] Location: CT Room/Bed: Procedure: [id number] CT /CT ABDOMEN/PELVIS WO Exam Date: 11/12/18 Exam Time: 0900 REPORT STATUS: Signed * ADDENDUM #1 ADDENDUM: Dose modulation, iterative recons truction, and/or weight based adjustment of the mA/kV was utilized to reduce t he radiation dose to as low as reasonably achievable. Signed by: Dr. Preethi Hamm MD on 11/12/2018 12:44 PM ORIGINAL REPORT EXAM: CT Abdomen and Pelvis WITHOUT contrast INDICATION: Diarrhea, left lower quadrant pain, Helicobacter pylori. COMPARISON: None. TECHNIQUE: Abdomen and pelvis were scanned utilizing a multidetector helical scanner from the clementina ng base to the pubic symphysis without administration of IV contrast. Absence of intravenous contrast decreases sensitivity for detection of focal lesions a nd vascular pathology. Coronal and sagittal reformations were obtained. Routin e protocol was performed. IV CONTRAST: None. ORAL C ONTRAST: Gastrografin RADIATION DOSE: Total DLP: 621.2 mGy*cm COMPLICATIONS: None FINDINGS: LINES and TUBES: None. LO WER THORAX: Unremarkable HEPATOBILIARY: No focal hepatic lesions. No biliary ductal dilation. GALLBLADDER: No radio-opaque stones or sludge. N o wall thickening. SPLEEN: No splenomegaly. PANCREAS: No focal masses or ductal dilatation. ADRENALS: No adrenal nodules KIDNEYS/URET ERS: No hydronephrosis. No cystic or solid mass lesions. No stones. GI TRACT: No evidence of bowel obstruction. Appendix is normal. Mild gastric wall thickening. PELVIC ORGANS/BLADDER: Status post hysterectomy. LYMPH NO MIKEY: No lymphadenopathy. VESSELS: Unremarkable. PERITONEUM / RETROPERI TONEUM: No free air or fluid. BONES: No acute bony abnormality. SOFT T ISSUES: Bilateral breast implants. IMPRESSION: No evidence of acute CT abdomen in the abdomen or pelvis. Mild gastric wall thickening, which may r eflect underdistention or gastritis in this patient with history of Helicobact er pylori. Correlation with findings from reported EGD performed at outside [facility] is suggested. Signed by: Dr. Kaitlin Hamm MD on 11/12/2018 9:36 AM Dictated By: KAITLIN HAMM MD 0936 COPY TO: JOHN PAUL ALEXIS MD - US ABDOMEN [id number] 13:03:00 Name: TONI NORWOOD [facility] : 1965 Age/S: 53 / F [address] [facility] Unit #: [id number] Loc: [place] [address] Phys: John Paul Alexis MD Acct: [id number] Dis Date: Status: DEP CLI PHONE #: [phone] Exam Date: 10/08/2018 1245 FAX #: [phone] Reason: 789.06,R10.13,I10,401.9,E66.9 EXAMS: CPT CODE: [id number] US ABDOMEN COMPLETE 52355 HISTORY: R10.13 TECHNIQUE: Static grayscale and color Doppler images from real time sonographic evaluation of the abdomen. Spectral waveform analysis of the portal vein. COMPARISON: 09/23/18 FINDINGS: LIVER: Normal echogenicity without focal lesion. No intrahepatic biliary dilation. Hepatopedal flow identified within the portal vein. GALLBLA DDER: No cholelithiasis. No gallbladder wall thickening or pericholecystic fluid. Technologist reports negative sonographic Adhikari's sign. COM MON DUCT: Normal caliber at 5 mm. PANCREAS: Partially obscured. No visib le pancreatic abnormality. KIDNEYS: Normal parenchymal echogenicity. Rig ht kidney measures 10.8 x 4.6 x 5.4 cm. Left kidney measures 11.3 x 4.7 x 5.5 cm. No hydronephrosis. SPLEEN: Normal parenchymal echogenicity. AORTA/IVC: No abdominal aortic aneurysm. Patent IVC. OTHER: There is no free fluid. IMPRESSION: 1. Negative son ographic evaluation of the abdomen. Electronically Deb d by Mandi Garcia D.O. on 10/08/2018 at 1303 Reported and s igned by: Mandi Garcia D.O. CC: John Paul Alexis MD Technologist: FABIOLA HILTON RT(R),ALEJA Trntxb Date/Time: 10/08/2018 (9846) [email or web address] Orig P mohini D/T: S: 10/08/2018 (8390) Probe: PAGE 1 Signed Report GASTRIC,BIOPSY 2018-09-28 14:28:00 RUN DATE: 09/28/18 [place] - Lab PAGE 1 RUN TIME: 1428 Specimen Inqui ry RUN USER: INTERFACE PATIENT: TONI NORWOOD ACCT #: [id number] LOC: [facility] U #: [id number] AGE/SX: 53/F ROOM: RE09/25/18REG DR: John Paul Alexis MD : 65 BED: DIS: [place] [facility]: SPEC #: [id number] RECD: 09/25/18 STATUS: SCOTTIE ALBARRAN #: [id number] SOFI: 09/25/18 [facility] DR: John Paul Alexis MD ENTERED: 09/25/18 SP TYPE: GASTRIC BX OTHR DR: Gulshan Clement MD ORDERED: GROSS COPIES TO: John Paul Alexis MD [address] [place], [place] [id number] Gulshan Clement MD [address] [place] [address] PROCEDURES: GROSS (09/28/18-1227) TIS SUES: 1. ANTRUM - BX 2. BODY BIOPSY OF STOMACH 3. COLO N, NOS - RANDOM BX CLINICAL HISTORY COLLECTION DATE: 09/25/18 Jes P COMMENT Intradepartmental consultation: DMW FINAL DIAGNO SIS Gastric antrum, biopsy: CHRONIC ACTIVE GASTRITIS POSITIVE FOR HELICOBACTER ORGANISMS NEGATIVE FOR INTESTINAL METAPLASIA NEGA TIVE FOR MALIGNANCY Gastric body, biopsy: MILD CHRONIC GASTRITIS WI THOUT ACTIVITY NEGATIVE FOR INTESTINAL METAPLASIA NO HELICOBACTER ORGANISMS IDENTIFIED BY GIEMSA STAIN NEGATIVE FOR MALIGNANCY CONTINUED ON NEXT PAGE [facility]: 1428 Specimen Inquiry RUN US ER: INTERFACE -------- ----SPEC #: [id number] PATIENT: TONI NORWOOD #[id number] (Continued) FINAL DIAGNOSIS (Continued) Ra ndom colon, biopsy: COLONIC MUCOSA WITH MILD CHRONIC INFLAMMATION, EDEMA, FOCAL ACUTE INFLAMMATION AND REACTIVE EPITHELIAL CHANGE NO CRY PT ABSCESS OR GRANULOMAS PRESENT NO HYPERPLASTIC OR ADENOMATOUS CHANGE MN ESENT NEGATIVE FOR MALIGNANCY RRB/sm D [phone], [phone] MACROSCOPIC The first specimen is received in formalin, labeled with the patient's name, identified as "antrum", and consists of light pink-maharaj bi opsy tissue measuring 0.3 cm in aggregate, submitted as (1) for H E and Giemsa stains. The second specimen is received in formalin, labeled with the pat ient's name, identified as "body of stomach", and consists of maharaj biopsy tissu e measuring 0.3 cm in aggregate, submitted as (2). The third specimen is received in formalin, labeled with the patient's name, identified as "random colon", and consists of multiple light maharaj biopsy tissue measuring 0.45 cm in aggregate, submitted as (3). GROSS PERFORMED AT [place] [address] [place] [address] [phone] MICROSCOPIC MICROSCOPIC PERFORMED AT [facility] All of the stains, including any controls performed, stain appropriately. [facility] [address] [place] [address] [phone] CONTINUED ON NEXT PAGE RUN DATE: 09/28/18 [facility] P AGE 3 RUN TIME: 1427 Specimen Inquiry RUN USER: INTERFACE SPEC #: [id number] PATIENT: TONI NORWOOD #[id number] (Continued) PERFORMING SITE Diagnosis p erformed at: [facility], [place] [address] Signed SIGNATURE ON FILE Vince Alvarado 09/28/18 1428 END OF R EPORT - US ABDOMEN [id number] 17:07:00 Name: TONI NORWOOD [facility] : 1965 Age/S: 53 / F [address] Unit #: [id number] Loc: [place] [address] Phys: John Paul Alexis MD Acct: [id number] Dis Date: Status: DEP CLI PHONE #: [phone] Exam Date: 09/23/2018 1640 FAX #: [phone] Reason: R10.13,789.06,401.9,E66.9,V85.33 EXAMS: CPT CODE: [id number] US ABDOMEN COMPLETE 51314 HISTORY: Epigastric pain and diarrhea. COMPARISON: None available. The liver is normal in echogenicity and texture without parenchymal mass or lesions. The liver measured 13.3 cm in length. No intra or extrahepatic biliary ductal dilatation. CBD is normal at 2.3 mm. Main portal vein is patent with hepatopedal flow and normal spectral waveform. Co ntracted gallbladder is limited. No gallstones visible. No pericholecyst ic fluid or wall thickening. No ascites. Both kidneys are free fr om hydronephrosis and calyceal stones. Normal echogenicity and texture. Right kidney measured 11.2 cm in length. Left kidney measured 10.8 cm in length. Spleen is not enlarged at 8.6 cm in length. Visualized po rtions of the IVC, aorta and pancreas are normal however imaged incomplete ly. IMPRESSION: Contracted gallbladder is very limited in evaluation. No gallstones are visible however repeat exam in fasting state recommended. Unremarkable liver, spleen and kidneys. at 1707 Reported and signed by: Josh Potts M.D. CC: John Paul Du MD; Gulshan Clement MD Technologist: Aoporva maynard Trnscb Date/Time: 09/23/2018 (0620) t.[email or web address] Orig Print D/T: S: 09/23/2018 (5007) Probe: PAGE 1 Signed Report BREAST ULTRASOUND [id number] 10:25:14- BREAST ULTRASOUND BILATERALULTRASOUND OF BOTH BREASTS AND BOTH AXILLA: 09/22/2018CLINICAL: Abnormal mammogram. Comparison is made to exams dated 09/05/2018 mammogram, 12/10/2017 ultrasound, and 06/29/2015 ultrasound - [facility]-. Real-time ultrasound of both breasts and both axilla was performed. There is an benign 8 mm cyst in the right breast at 8 o'clock, 6 cm from the nipple, that may correspond to the mammographic findings. No abnormalities were seen sonographically in either axilla. Bilateral implants were intact. Benign cysts and dilated ducts were seen bilaterally. No solid masses were seen. IMPRESSION : BENIGN - FOLLOW-UP RECOMMENDEDThere is no sonographic evidence of malignancy. Patient had a seizure during the completion of the ultrasound.A follow-up mammo gram and an ultrasound in 6 months is recommended to demonstrate stability. Eric Rowell M.D. dm/:09/22/2018 10:25:14 copy to: Kimani Colon MD, Women's Health Specialist, Dr.Fernando Colon/Attn:[place], ph: [phone], fax: [phone] Technologist: Jenifer Hassan , [facility]- letter sent: BIRADS 1-2 Combo FU Letter Ultrasound BI-RADS: 2 BenignDIAG MAMM RIGHT [place] CAD DIGITAL W/[id number] 10:15:30 - DIAG MAMM RIGHT [place] CAD DIGITAL W/AUGMENTATIONUNILATERAL RIGHT DIGITAL DIAGNOSTIC MAMMOGRAM 3D/2D WITH CAD WITH AUGMENTATION: 09/22/2018Digital breast tomosynthesis was performed in addition to routine CC and MLO views. Current mammographic images were evaluated by either a Mashape M-Vu or a Iris MobileChecker CAD (computer aided detection system). Comparison is made to exams dated 09/05/2018 mammogram, 12/10/2017 mammogram, and 09/26/2017 mammogram - [facility]-. The tissue of the right breast is heterogeneously dense. This may lower the sensitivity of mammography. There are nodular densities that most likely represent benign fibroadenomas, cysts, or nodular breast tissue, however this m ust be confirmed with ultrasound. No suspicious mass, architectural distortion, malignant type calcification, or lymph node abnormality detected. IMPRESSION: INCOMPLETE ASSESSMENT: ADDITIONAL IMAGING EVALUATION RECOMMENDEDUltrasound pendi ng for additional evaluation. There is no mammographic evidence of malignancy. Wendy Rowell M.D. dm/:09/22/2018 10:15:30 Entry: lc - 09/22/2018 15:06:20copy to: Kimani Colon MD, Women's Health Specialist, Dr.Fernando Donnelly n/Attn:[place], ph: [phone], fax: [phone] Technologist: Amirah Christianson , [facility]-Mammogram BI-RADS: 0 IndeterminateSCR MAMM BILATERAL [place] CAD [id number] 15:41:44 - SCR MAMM BILATERAL [place] CAD DIGITALBILATERAL DIGITAL SCREENING MAMMOGRAM 3D/2D WITH CAD WITH AUGMENTATION: 09/05/2018CLINICAL: Asymptomatic. Digital breast tomosynthesis was performed in addition to routine CC and MLO views. Current ma mmographic images were evaluated by either a Mashape M-Vu or a [employer]bor er CAD (computer aided detection system). Comparison is made to exams dated mammogram, 09/26/2017 mammogram, and 06/29/2015 mammogram - [facility]-. The tissue of both breasts is heterogeneously dense. This may lower the sensitivity of mammography. Bilateral retropectoral saline breast implants appear intact. There is an oval mass measuring 0.8 cm in the lower outer quad rant of the right breast at posterior depth (CC 17; MLO 15). No other significan t masses, calcifications, or other findings are seen in either breast. Breast a rchitecture is stable compared to prior exams.IMPRESSION: INCOMPLETE ASSESSMENT: ADDITIONAL IMAGING EVALUATION RECOMMENDEDThe mass in the right breast needs add itional evaluation. Mammogram and ultrasound recommended. Eda Georges M.D. el/:09/08/2018 15:41:44 Fleet Service Clerk: Bren Maldonado, [facility]-FWletter sent: Additional Imaging Mammogram BI-RADS: 0 IndeterminateWRIST COMPLETE [id number] 13:29:00 [place] [address] Patient Name: TONI NORWOOD MR #: [id number] : 1965 Age/Sex: 52/F Req #: [id number] Adm Physician: Ordered by: AUBREY REYES NP Report #: [id number] Location: ER Room/Bed: Procedure: [id number] DX/WRIST COMPLETE LEFT Ex am Date: Exam Time: REPORT STATUS: Signed Exam: Left wrist 3 views an elbow 3 views History: Pain Compariso n: None. Findings: No fracture or malalignment. Joint spaces preserved. No abnormal soft tissue calcification or soft tissue defect. Impression: No acute osseous abnormality Signed by: Dr. Saba Medina M.D. on 07/18/2018 1:30 PM Dictated By: SABA MEDINA MD 1330 Transcribed By: RILEY on 07/18/18 1 330 COPY TO: AUBREY REYES NP ELBOW LEFT [id number] 13:29:00 [place] [address] Patient Name: TONI NORWOOD MR #: [id number] : 1965 Age/Sex: 52/F Req #: [id number] Adm Physician: Ordered by: AUBREY REYES FAMILY SOCIOLOGIST Report #: [id number] Location: ER Room/Bed: Procedure: [id number] DX/ELBOW LEFT COMPLETE Ex am Date: Exam Time: REPORT STATUS: Signed Exam: Left wrist 3 views an elbow 3 views History: Pain Compariso n: None. Findings: No fracture or malalignment. Joint spaces preserved. No abnormal soft tissue calcification or soft tissue defect. Impression: No acute osseous abnormality Signed by: Dr. Saba Medina M.D. on 07/18/2018 1:30 PM Dictated By: SABA MEDINA MD 1330 Transcribed By: RILEY on 07/18/18 1 330 COPY TO: AUBREY REYES NP [facility] Nancy/[id number] 13:26:00 [place] [address] Patient Name: TONI NORWOOD MR #: [id number] : 1965 Age/Sex: 52/F Req #: [id number] Adm Physician: Ordered by: AUBREY REYES FAMILY SOCIOLOGIST Report #: [id number] Location: ER Room/Bed: Procedure: [id number] DX/RIBS UNILAT W/CXR Exam Date: Exam Time: [...] acute bony abnormalities. IMPRESSION: No acute cardiopulmonary abno rmalities. No displaced rib fracture Signed by: Dr. Saba Jaimes ch, M.D. on 07/18/2018 1:29 PM Dictated By: SABA MEDINA MD [facility] Signed By: SABA MEDINA MD on 07/18/181328 Transcribed By: RILEY brown 07/18/181328 COPY TO: AUBREY REYES NP CHEST 2 VIEWS 2018-07-18 13:26:00 [place] [address] Patient Name: TONI NORWOOD MR #: [id number] : 1965 Age/Sex: 52/F Req #: [id number] Adm Physician: Ordered by: AUBREY REYES NP Report #: [id number] Location: ER Room/Bed: Procedure: [id number] DX/CHEST 2 VIEWS Exam Iatlo e: Exam Time: REPORT STATUS: Signed EXA MINATION: PA and lateral views of the chest. Rib series COMPARISON: None CLINICAL HISTORY: Pain DISCUSSION: Lines/tubes: None. L ungs: The lungs are well inflated and clear. No pneumonia or pulmonary edema. Pleura: No pleural effusion or pneumothorax. Heart and mediastinum: T he cardiomediastinal silhouette is normal. Bones and soft tissues: No acut e bony abnormalities. IMPRESSION: No acute cardiopulmonary abnormal ities. No displaced rib fracture Signed by: Dr. Saba Medina M.D. on 07/18/2018 1:29 PM Dictated By: SABA MEDINA MD Electronicall y Signed By: SABA MEDINA MD on 07/18/18 1329 Transcribed By: RILEY on 1329 COPY TO: AUBREY REYES FAMILY SOCIOLOGIST - CT CHEST W/CONTRAST 2014-06-24 08:15:00 Name: TONI NORWOOD [facility] : 1965 Age/S: 48 / F [address] [facility] Unit #: [id number] Loc: [place] [address] Phys: Le Mae MD Acct: [id number] Dis Date: Status: UNK PHONE #: [phone] Exam Date: 06/23/2014 2351 FAX #: [phone] Reason: SYNCOPE, CHEST PAIN EXAMS: CPT CODE: [id number] CT CHEST W/CONTRAST 34198 CT ANGIOGRAPHY OF CHEST WITH CONTRAST HISTORY: SYNCOPE, CHEST PAIN TECHNIQUE: 1.[address] angiographic images of the chest after bolus IV administration of 100 mL of Isovue-370 contrast. Thin slab maximum intensity projection (MIP) reconstructions were generated. COMPARISON: Chest x-ray from earlier today FINDINGS: No pneumothorax, airspace consolidation, or pleural effusion. Central airways are patent. No pulmonary embolus. No thoracic aortic aneurysm or dissection. Normal heart size. No pericardial effusion. Low-density lesions of the thyroid, measuring up to 9 mm. No mediastinal lymphadenopathy. Normal esophagus. No acute findings within the included upper abdomen. Bilateral breast implants. Degenerative changes of the included spine. IMPRESSION: 1. No pulmonary embolus or other acute cardiopulmonary process. 2. Low- density lesions of the thyroid; correlate with ultrasound. STAT/after-hours preliminary report was submitted by [facility] at 2349 hrs. This final report is in agreement. at 0815 Reported and signed by: Mandi Garcia D.O. CC: Le Mae MD Technologist:KEYLA MIRANDAKINSON CT CTDI: 29 DLP: 1017 Trnscb Date/Time: 06/24/2014 (0815) [email or web address] Orig Print D/T: S: 06/24/2014 (0818) PAGE 1 Signed Report - CT CHEST [id number] 08:15:00 Name: TONI NORWOOD [facility] : 1965 Age/S: 48 / F [address] [facility] Unit #: [id number] Loc: [place] [address] Phys: Reina Mae MD Acct: [id number] Di s Date: Status: UNK PHONE #: Exam Date: 06/23/2014 2353 FAX #: Reason: SYNCOPE, CHEST PAIN EXAMS: CPT CODE: [id number] CT CHEST W/CO NTRAST 05435 CT ANGIOGRAPHY OF CHEST W ITH CONTRAST HISTORY: SYNCOPE, CHEST PAIN TECHNIQUE: 1.[address] angiographic images of the chest after bolus IV adminis tration of 100 mL of Isovue-370 contrast. Thin slab maximum intensity proj ection (MIP) reconstructions were generated. COMPARISON: Chest x-r ay from earlier today FINDINGS: No pneumothorax, ai rspace consolidation, or pleural effusion. Central airways are patent. No pulmonary embolus. No thoracic aortic aneurysm or dissection. Normal heart size. No pericardial effusion. Low-density lesions of the thyroid, measuring up to 9 mm. No mediastinal lymphadenopathy. Normal esophagus. No acute findings within the included upper abdomen. Bilateral breast implants. Degenerative changes of the included spine. IMPRESSION: 1. No pulmonary embolus or other ac iliamna cardiopulmonary process. 2. Low-density lesions of the thyroid; carmen elate with ultrasound. STAT/after-hours preliminary report was submitted by [facility] at 2349 hrs. This final report i s in agreement. Electronically Signed by Mandi Garcia D.O. on 4 at 0815 Reported and signed by: Mandi Licea C: Le Mae MD Technologist:KEYLA RUBEN [facility] CT CTDI: 29 DLP: 1017 Trnscb Date/Time: 06/24/2014 (0 815) [email or web address] Orig Print D/T: S: 06/24/2014 (0805) PAGE 1 Signed Report - XR CHEST 1 [id number] 22:40:00 FAX: Le Nino MD [phone] [place]: St: UNK Name: TONI HODGES [facility] : [birth year] Age/S: 48/F [address] Unit #: [id number] Loc: [place] [address] Phys: Le Mae MD Acct: [id number] Dis Date: Status: UNK PHONE #: [phone] Exam Date: 06/23/20142209 FAX #: [phone] Reason: CHEST PAIN EXAMS: CPT CODE: [id number] XR CHEST 1 V 99624 HISTORY/REASON FOR EXAM: CHEST PAIN TECHNIQUE: - XR CHEST 1 V COM PARISON: none FINDINGS: No infiltrate, pleural effusion, or pneumothorax. Normal heart size and mediastinal contour. No acute skelet al findings. IMPRESSION: No radiographic evidence of acute process in the chest. at 2240 Reported and deb d by: Fantasma Ortiz M.D. CC: Le Mae MD Technologist: MAURIZIO Gonsales Trnscrd Date/Time/By: 06/23/2014 (9360) : By: [email or web address] Orig Print D/T: S: 06/23/2014 (1215) PAGE 1 Signed Report - XR CHEST 1 [id number] 22:40:00 FAX: Le Nino MD [phone] [place]: St: UNK Name: TONI HODGES [facility] : [birth year] Age/S: 48/F [address] [facility] Unit #: [id number] Loc: [place] [address] Phys: Le Mae MD Acct: [id number] Dis Date: Status: UNK PHONE #: [phone] Exam Date: 06/23/20142209 FAX #: [phone] Reason: CHEST PAIN EXAMS: CPT CODE: [id number] XR CHEST 1 V 21534 HISTORY/REASON FOR EXAM: CHEST PAIN TECHNIQUE: - XR CHEST 1 V COM PARISON: none FINDINGS: No infiltrate, pleural effusion, or pneumothorax. Normal heart size and mediastinal contour. No acute skelet al findings. IMPRESSION: No radiographic evidence of acute process in the chest. at 2240 Reported and deb d by: Fantasma Ortiz M.D. CC: Le Mae MD Technologist: DAILY GonsalesR Trnscrd Date/Time/By: 06/23/2014 (2272) : By: [email or web address] Orig Print D/T: S: 06/23/2014 (3629) PAGE 1 Signed Report [id number] 23:45:00Negative (04/20/2012 18:45:00) [facility]
--- OUTSIDE RECORDS SUMMARY | 2020-09-13 10:42 | XMS REPORT | Continuity of Care Document ---
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 Problem 09/2020 [facility] Major depressive disorder, Recurrent episode, Moderate Active Problem 04/07/2020 [facility] Unspecified anxiety disorder A ctive Problem 09/2020 [facility] Medications No Data Provided for This Section Allergies, Adverse Reactions, Alerts No Known Medication Allergies Immunizations No Data Provided for This Section Results No Data Provided for This Section Pathology Reports No Data Provided for This Section Diagnostic Reports No Data Provided for This Section Consultation Notes No Data Provided for This Section Discharge Summaries No Data Provided for This Section History and Physicals No Data Provided for This Section Vital Signs No Data Provided for This Section Encounters No Data Provided for This Section Procedures No Data Provided for This Section Assessment and Plan No Data Provided for This Section Plan of Care No Data Provided for This Section Social History No Data Provided for This Section Family History No Data Provided for This Section Advance Directives No Data Provided for This Section Functional Status No Data Provided for This Section
--- NOTE | 2020-09-13 11:21 | Diagnostic Imaging Report ---
X-ray right hand and right wrist History: Pain Findings: No acute fracture, subluxation, significant soft tissue swelling, radiopaque foreign body. Impression: As above. Signed by: Amador Fung MD on 09/13/2020 11:18 AM
== END 2020-09-13 11:20 | disposition home or self-care (01) ==
LOC: FSED 10:30
DX: S60.221A Contusion of right hand, initial encounter (principal); W18.30XA Fall on same level, unspecified, initial encounter; I10 Essential (primary) hypertension; G40.909 Epilepsy, unspecified, not intractable, without status epilepticus; M79.7 Fibromyalgia; J45.909 Unspecified asthma, uncomplicated; D64.9 Anemia, unspecified
CPT/HCPCS: 99284

== ENCOUNTER → 2020-10-10 | Day surgery (SDC) | payer OTHER ==
[~2020-10-10] MED LIST changes: +ACETAMINOPHEN 325 MG TAB ONE; +BALANCED SALT SOLN (OPTH) 15 ML BTL IO ONE; +LIDOCAINE 2% /EPINEPHRINE 20 ML SDV INJ ONE; +LIDOCAINE HCL 2% LOCAL INJ 5 ML SDV VIAL INJ ONE; +MIDAZOLAM HCL 2 MG/2 ML VIAL ONE; +NEOMYCIN/POLYMYXIN/DEX (OPTH) 3.5 GM TUBE ONE; +POVIDONE IODINE 5% (OPTH) 30 ML BTL ONE; +PROPOFOL IV EMULSION 10 MG/ML 20 ML VIAL ONE
[2020-10-10 17:35] VITALS: BP 128/73
== END | disposition home or self-care (01) ==
LOC: OR 11:52
PROVIDERS: ATTEND Internal Medicine Cardiovascular Disease
DX: H02.834 Dermatochalasis of left upper eyelid (principal); H02.831 Dermatochalasis of right upper eyelid; I10 Essential (primary) hypertension; D64.9 Anemia, unspecified; R56.9 Unspecified convulsions; Z88.8 Allergy status to other drugs, medicaments and biological substances; Z91.048 Other nonmedicinal substance allergy status; R09.82 Postnasal drip; Z91.09 Other allergy status, other than to drugs and biological substances; E78.00 Pure hypercholesterolemia, unspecified; K21.9 Gastro-esophageal reflux disease without esophagitis; F41.9 Anxiety disorder, unspecified; Z01.812 Encounter for preprocedural laboratory examination; Z20.828 Contact with and (suspected) exposure to other viral communicable diseases
CPT/HCPCS: 15823; J2001 ×2; J2704; U0002; J2250

== ENCOUNTER 2021-10-09 20:27 | Emergency (ER) | payer SELFPAY ==
[~2021-10-09] VITALS: Ht 165.1 cm; Wt 85.7 kg
[~2021-10-09 20:27] MED LIST changes: -ACETAMINOPHEN 325 MG TAB ONE; +ASPIR 8181 MG PO; -BALANCED SALT SOLN (OPTH) 15 ML BTL IO ONE; +CEPHALEXIN500 MG PO; +DILANTIN100 MG PO; +DIOVAN160 MG PO; +EPINEPHRIN0.3 MG/0.3 IM; -LIDOCAINE 2% /EPINEPHRINE 20 ML SDV INJ ONE; -LIDOCAINE HCL 2% LOCAL INJ 5 ML SDV VIAL INJ ONE; +MECLIZINE HCL12.5 MG PO; -MIDAZOLAM HCL 2 MG/2 ML VIAL ONE; -NEOMYCIN/POLYMYXIN/DEX (OPTH) 3.5 GM TUBE ONE; -POVIDONE IODINE 5% (OPTH) 30 ML BTL ONE; +PREDNISONE10 MG PO; -PROPOFOL IV EMULSION 10 MG/ML 20 ML VIAL ONE
[2021-10-09] MEDS ORDERED: SODIUM CHLORIDE 0.9% 1000ML 1,000 ML IV SCH (21:15)
[2021-10-09] MEDS ORDERED: FOSPHENYTOIN 50 MG/ML VIAL IV STA (22:37)
[2021-10-09] MEDS ORDERED: SODIUM CHLORIDE 0.9% 500ML 500 ML ONE (22:49)
[2021-10-09] MEDS ORDERED: PHENYTOIN SODIUM INJ 50 MG/ML 2 ML VIAL ONE ×2 (22:49→22:55)
== END 2021-10-09 23:21 | disposition home or self-care (01) ==
LOC: FSED 21:02
DX: G40.909 Epilepsy, unspecified, not intractable, without status epilepticus (principal); Z91.14 Patient's other noncompliance with medication regimen; F41.0 Panic disorder [episodic paroxysmal anxiety]; I10 Essential (primary) hypertension; G62.9 Polyneuropathy, unspecified; D64.9 Anemia, unspecified; J45.909 Unspecified asthma, uncomplicated; M79.7 Fibromyalgia
CPT/HCPCS: 80053; 81003; 85025; 99284; J1165; J7040

== ENCOUNTER 2023-03-18 20:48 | Emergency (ER) | payer OTHER ==
[~2023-03-18] VITALS: Ht 165.1 cm; Wt 85.7 kg
[2023-03-18 21:08] LABS: BASOPHILS # (AUTO) 0.1 (0.0-0.1); BASOPHILS % 0.8 % (0.0-1.0); EOSINOPHILS # (AUTO) 0.1 (0.0-0.4); EOSINOPHILS % 0.6 % (0.0-6.0); HEMATOCRIT 43.2 % (34.2-44.1); HEMOGLOBIN 14.2 g/dL (12.0-16.0); LYMPHOCYTES # (AUTO) 3.5 (1.0-3.2); LYMPHOCYTES % 39.1 % (18.0-39.1); MEAN CORPUSCULAR HGB CONC 32.9 g/dL (31-35); MEAN CORPUSCULAR VOLUME 91.3 fL (81-99); MONOCYTES # (AUTO) 0.8 (0.2-0.8); MONOCYTES % 8.3 % (4.4-11.3); NEUTROPHILS # (AUTO) 4.6 (2.1-6.9); NEUTROPHILS % 51.1 % (38.7-80.0); PLATELET COUNT 237 x10e3/uL (140-360); RED BLOOD COUNT 4.73 x10e6/uL (3.6-5.1); RED CELL DISTRIBUTION WIDTH 12.6 % (11.7-14.4)
[2023-03-18 21:27] LABS: ALBUMIN 4.2 g/dL (3.5-5.0); ALBUMIN/GLOBULIN RATIO 1.2 (0.8-2.0); ANION GAP 16.5 mmol/L (8-16); CALCIUM 10.2 mg/dL (8.4-10.2); CREATININE, SERUM 1.24 mg/dL (0.57-1.11); POTASSIUM 4.5 mmol/L (3.5-5.1)
[2023-03-18 22:09] LABS: CREATINE KINASE MB 1.9 ng/mL (0-5.0)
[2023-03-18 23:13] VITALS: BP 148/91; PULSE 92; RESP 17; TEMP 98.3; O2SAT 99
== END 2023-03-18 23:18 | disposition home or self-care (01) ==
LOC: ER 21:00
DX: R55 Syncope and collapse (principal); W18.39XA Other fall on same level, initial encounter; Y93.01 Activity, walking, marching and hiking; Y92.238 Other place in hospital as the place of occurrence of the external cause; M79.7 Fibromyalgia; R94.31 Abnormal electrocardiogram [ECG] [EKG]
CPT/HCPCS: 36415; 70450; 71045; 80053; 82550; 82553; 83690; 83880; 84484; 85025; 85379; 93005; 99284

== ENCOUNTER 2024-05-30 22:17 | Emergency (ER) | payer OTHER ==
[~2024-05-30] VITALS: Ht 165.1 cm; Wt 77.1 kg
[2024-05-30 22:27] VITALS: PULSE 93; RESP 18; TEMP 97.7; O2SAT 99
== END 2024-05-30 22:49 | disposition home or self-care (01) ==
LOC: FSED 22:20
DX: H92.02 Otalgia, left ear (principal); I10 Essential (primary) hypertension; J45.909 Unspecified asthma, uncomplicated; G40.909 Epilepsy, unspecified, not intractable, without status epilepticus; D64.9 Anemia, unspecified; M79.7 Fibromyalgia
CPT/HCPCS: 99282

== ENCOUNTER → 2024-07-29 | Day surgery (SDC) | payer OTHER ==
[~2024-07-29] MED LIST changes: +ASPIRIN EC81 MG PO; +ATENOLOL50 MG PO; +FENTANYL CITRATE/PF 100MCG/2 ML INJ ONE; +LACTATED RINGER'S 1,000 ML ONE; +LIDOCAINE HCL 2% LOCAL INJ 5 ML SDV VIAL INJ ONE; +MAGNESIUM OXID400 MG PO; +MIDAZOLAM HCL 2 MG/2 ML VIAL ONE; +OREGANO OIL 501 EACH PO; +OZEMPIC0.25 MG/02 SC; +PROPOFOL IV EMULSION 10 MG/ML 20 ML VIAL ONE; +VENTOLIN HFA18 GM INH
[2024-07-29 14:05] VITALS: BP 134/82; PULSE 82; RESP 16; TEMP 97.4; O2SAT 98
== END | disposition home or self-care (01) ==
LOC: OR 10:05
PROVIDERS: ATTEND Internal Medicine Gastroenterology
DX: K29.70 Gastritis, unspecified, without bleeding (principal); Z86.19 Personal history of other infectious and parasitic diseases; K22.89 Other specified disease of esophagus; K20.90 Esophagitis, unspecified without bleeding; K44.9 Diaphragmatic hernia without obstruction or gangrene; K21.9 Gastro-esophageal reflux disease without esophagitis; K59.09 Other constipation; Z71.3 Dietary counseling and surveillance; R63.0 Anorexia; I10 Essential (primary) hypertension; R00.0 Tachycardia, unspecified; J45.909 Unspecified asthma, uncomplicated; R01.1 Cardiac murmur, unspecified; M25.512 Pain in left shoulder; R56.9 Unspecified convulsions; G62.9 Polyneuropathy, unspecified; F41.9 Anxiety disorder, unspecified; F32.A Depression, unspecified; Z88.8 Allergy status to other drugs, medicaments and biological substances; Z91.041 Radiographic dye allergy status; Z01.810 Encounter for preprocedural cardiovascular examination; Z79.85 Long-term (current) use of injectable non-insulin antidiabetic drugs; Z79.82 Long term (current) use of aspirin; Z79.899 Other long term (current) drug therapy; Z68.30 Body mass index [BMI] 30.0-30.9, adult
CPT/HCPCS: 43239; 93005; J2003; J2250; J2470; J2704; J3010; J7121

== ENCOUNTER → 2024-09-15 | Outpatient (REF) | payer OTHER ==
[~2024-09-15] MED LIST changes: -FENTANYL CITRATE/PF 100MCG/2 ML INJ ONE; -LACTATED RINGER'S 1,000 ML ONE; -LIDOCAINE HCL 2% LOCAL INJ 5 ML SDV VIAL INJ ONE; -MIDAZOLAM HCL 2 MG/2 ML VIAL ONE; -PROPOFOL IV EMULSION 10 MG/ML 20 ML VIAL ONE
== END ==
LOC: RAD 16:29
PROVIDERS: ATTEND Nurse Practitioner
DX: R10.10 Upper abdominal pain, unspecified (principal); K20.90 Esophagitis, unspecified without bleeding; K29.70 Gastritis, unspecified, without bleeding; K56.609 Unspecified intestinal obstruction, unspecified as to partial versus complete obstruction; R11.2 Nausea with vomiting, unspecified
CPT/HCPCS: 74018

== ENCOUNTER → 2024-09-29 | Outpatient (REF) | payer OTHER | LOC: CT 14:02 | PROVIDERS: ATTEND Nurse Practitioner | DX: R10.10 Upper abdominal pain, unspecified (principal); R11.2 Nausea with vomiting, unspecified; K20.90 Esophagitis, unspecified without bleeding; K29.70 Gastritis, unspecified, without bleeding; K56.609 Unspecified intestinal obstruction, unspecified as to partial versus complete obstruction | CPT/HCPCS: 74176 ==

== ENCOUNTER 2025-06-30 08:27 | Emergency (ER) | payer OTHER ==
[~2025-06-30] VITALS: Ht 165.1 cm; Wt 77.1 kg
[2025-06-30 09:03] VITALS: PULSE 85; RESP 20; TEMP 98.5
[2025-06-30] MEDS ORDERED: PREDNISONE20 MG PO (09:49)
[2025-06-30] MEDS ORDERED: METHOCARBAMOL500 MG PO (09:49)
[2025-06-30] MEDS: ORPHENADRINE CITRATE 30 MG/ML VIAL IM ONE (09:58)
[2025-06-30] MEDS: KETOROLAC TROMETHAMINE 30 MG/ML VIAL IM STA (09:59)
[2025-06-30 10:40] VITALS: BP 142/87; PULSE 72; RESP 18; O2SAT 98
== END 2025-06-30 10:35 | disposition home or self-care (01) ==
LOC: ER 08:40
DX: M54.50 Low back pain, unspecified (principal); G62.9 Polyneuropathy, unspecified; I10 Essential (primary) hypertension; J45.909 Unspecified asthma, uncomplicated; G40.909 Epilepsy, unspecified, not intractable, without status epilepticus; D64.9 Anemia, unspecified; M79.7 Fibromyalgia
CPT/HCPCS: 99283; J1885; J2360